=== PATIENT | female | born 1955 | race Caucasian/White ===

== ENCOUNTER → 2017-03-21 | Outpatient (CLI) | payer BC ==
[~2017-03-21] MED LIST: ANTRONEX PO; ASCO10003 PO; ASPI81TA28 PO; CALC100T3 PO; CHOL1TAB42 PO; GLUCTAB7 PO; MULTCAP33 PO
--- NOTE | 2017-03-21 16:39 | MAMMOGRAPHY REPORT ---
BILATERAL DIGITAL SCREENING MAMMOGRAM TOMOSYNTHESIS WITH CAD: 03/21/2017 CLINICAL HISTORY: Routine screening. Patient has no complaints. TECHNIQUE: Breast tomosynthesis in addition to standard 2D mammography was performed. Current study was also evaluated with a Computer Aided Detection (CAD) system. COMPARISON: Comparison is made to exams dated: 02/25/2016 mammogram, 02/19/2015 mammogram, 02/13/2014 ma mmogram, 01/17/2013 mammogram, 01/11/2012 mammogram, and 12/30/2010 mammogram - [facility] ter. BREAST COMPOSITION: There are scattered areas of fibroglandular density in both breasts. FINDINGS: There is a new oval circumscribed 2.1 cm mass within the right upper outer quadrant, which likely represents a cyst although additional imaging evaluation with ultrasound is recommended. A f ew other smaller similar appearing circumscribed masses are also seen within the right superior breas t at approximately 12:00, for which ultrasound is also recommended. There is a 9 mm asymmetry seen w ithin the left breast along the posterior nipple line on the cc view middle depth, without a clear co rrelate seen on the MLO view although this is possibly based inferiorly based on the tomosynthesis lo calizer prior. Recommend spot compression tomosynthesis views and possible breast ultrasound for fur ther evaluation. The remainder of both breasts are stable compared to prior exams, without suspicious masses, calcific ations, or areas of architectural distortion noted. IMPRESSION: ACR BI-RADS CATEGORY 0: INCOMPLETE EVALUATION: NEED ADDITIONAL IMAGING EVALUATION Right breast masses and left breast asymmetry, for which additional imaging evaluation is recommended . The patient will be called to schedule an appointment. Approximately 10% of breast cancers are not detected with mammography. A negative mammographic report should not delay biopsy if a clinically suggestive mass is present. Gloria Mayes M.D. /:03/21/2017 16:22:19 Inspector Packer: Mckayla BENITES(Edith)(Verito), [facility] letter sent: Addl Imaging 0 BI-RADS Code: ACR BI-RADS Category 0: Incomplete Evaluation: Need Additional Imaging Evaluation
== END | disposition home or self-care (01) ==
LOC: C.MAMM 10:47
PROVIDERS: ATTEND Family Medicine
DX: Z12.31 Encounter for screening mammogram for malignant neoplasm of breast (principal)

== ENCOUNTER → 2017-04-02 | Outpatient (CLI) | payer BC ==
--- NOTE | 2017-04-02 10:54 | DIAGNOSTIC IMAGING REPORT ---
PELVIS BILATERAL HIP 2 CLINICAL HISTORY: B/L HIP PAIN pain COMPARISON: None. 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 Good contact between prosthetic and underlying bone. Mild degenerative change left hip. No evidence for acute bony abnormality. There is no evidence for soft tissue swelling. IMPRESSION: 1. Total right hip prosthetic in good position. 2. Mild degenerative change left hip. 3. No acute process. Electronically signed by: Luther Degroot M.D. 04/02/2017 10:53 AM Dictated Date/Time: 04/02/2017 10:53 AM
== END | disposition home or self-care (01) ==
LOC: C.RDSM 13:44
PROVIDERS: ATTEND Physician Assistant
DX: R52 Pain, unspecified (principal)

== ENCOUNTER → 2017-04-02 | Outpatient (CLI) | payer BC ==
--- NOTE | 2017-04-02 16:00 | MAMMOGRAPHY REPORT ---
UNILATERAL LEFT DIGITAL DIAGNOSTIC MAMMOGRAM TOMOSYNTHESIS AND TARGETED BILATERAL ULTRASOUND: 04/02/20 17 CLINICAL HISTORY: 61-year-old woman called back from screening for right breast masses and left breas t asymmetry. TECHNIQUE: Spot compression left CC and MLO 2-D digital and tomosynthesis images were obtained. COMPARISON: Comparison is made to exams dated: 03/21/2017 mammogram, 02/25/2016 mammogram, 02/19/2015 m ammogram, 02/13/2014 mammogram, 01/17/2013 mammogram, and 01/11/2012 mammogram - [facility]. BREAST COMPOSITION: There are scattered areas of fibroglandular density in the left breast. FINDINGS: Spot compression views of the left breast were obtained. The spot compression left CC vie w demonstrates persistence of a 5.7 x 3.5 mm lobulated mass in the middle one third of the breast, al colette the posterior nipple line. This is thought to project inferiorly based on the spot compression M LO view no associated architectural distortion or microcalcification. Further evaluation with ultras ound was performed. Real-time high-resolution ultrasound was performed in the lateral right breast to assess for the 3 pa rtially circumscribed masses seen mammographically. In the 12:00 axis, 1 cm from the nipple, there a re 2 anechoic benign simple cysts. The larger is deeper measuring 8.2 x 5.6 mm, and the smaller is m ore superficial measuring 3.6 x 3.0 mm. Another mildly complicated cyst is seen in the 11:00 right b reast, 1 cm from the nipple, measuring 6.6 x 7.0 x 5.5 mm. A third a larger oval parallel anechoic c yst is identified in the 9:30 right breast, 1 cm from the nipple, measuring 19.2 x 7.7 x 18.9 mm. No suspicious solid mass is seen in the right breast. The cysts identified correlate with the mammogra phic masses and are benign. In the left 5:00 axis, 2 cm from the nipple, there is a dumbbell shaped circumscribed parallel hypoec hoic solid-appearing mass measuring 5.0 x 2.4 x 3.3 mm. This may possibly correlate with the mammogr aphic asymmetry. Given the solid nature it is indeterminate, warranting definitive characterization with tissue sampling. Other scattered cysts and duct ectasia are seen in the 5:00 left breast, 3 cm from the nipple, measuring 2.8 mm, and another cyst versus focal duct ectasia is seen in the 6:00 lef t breast, 1 cm from the nipple measuring 3.4 x 2.8 x 3.4 mm. Another probable cyst is seen in the 6: 00 periareolar left breast measuring 4.5 x 2.4 x 3.4 mm. IMPRESSION: ACR BI-RADS CATEGORY 4B: INTERMEDIATE SUSPICION FOR MALIGNANCY, TARGETED ULTRASOUND ACR BI-RADS CATEGORY 4B: INTERMEDIATE SUSPICION FOR MALIGNANCY 1. Ultrasound guided core biopsy is recommended for an indeterminate 5 mm solid mass in the 5:00 lef t breast. Correlation with posterior seizure mammograms are recommended to assess for mammographics onographic correlation and if this may possibly correlate with the mammographic asymmetry. Otherwise it may possibly correlate with one of the other cysts or focal duct ectasia seen on ultrasound. 2. The circumscribed masses in the right breast correlate with benign cysts on ultrasound. These fi ndings are compatible with benign fibrocystic changes and no further workup is needed. These results and recommendations were discussed with the patient at the time of the exam. She tenta tively scheduled the left breast biopsy prior to leaving our department. Approximately 10% of breast cancers are not detected with mammography. A negative mammographic report should not delay biopsy if a clinically suggestive mass is present. Iva Prieto M.D. ay/:04/02/2017 13:27:39 Associate Spa Director: Mimi Pereyra, [facility] letter sent: Abnormal 4/5 BI-RADS Code: ACR BI-RADS Category 4B: Intermediate Suspicion For Malignancy Ultrasound BI-RADS: ACR BI-RADS Category 4B: Intermediate Suspicion For Malignancy
== END | disposition home or self-care (01) ==
LOC: C.MAMM 09:31
PROVIDERS: ATTEND Family Medicine
DX: N63 Unspecified lump in breast (principal); N64.9 Disorder of breast, unspecified

== ENCOUNTER → 2017-04-11 | Outpatient (CLI) | payer BC ==
--- NOTE | 2017-04-11 14:34 | Discharge Instructions ---
Discharge Instructions Procedure Procedure Date: Apr 11, 2017. Reason for visit: Left Mass. Discharge Discharge Date: Apr 11, 2017. Discharge Diagnosis: post left 5:00 ultrasound guided core biopsy Instructions Activity Recommendations: Additional Limitations (see below) Return to School/Work: no limitations Recommended Home Diet: No Limitations Provider Instructions: ACTIVITY RECOMMENDATIONS: * No lifting, pushing, pulling or exercising the affected side for three days. RETURN TO SCHOOL/WORK: * You may return to work/school after the procedure, but do not perform any strenuous activities for 24 to 48 hours. MEDICATIONS: * Tylenol (two 325 mg) every four to six hours if needed for mild pain (if not allergic to Tylenol). DIET: * Resume previous diet. SPECIAL CARE INSTRUCTIONS: * Keep biopsy site dry for 24 hours. May shower after 24 hours, but do not soak (bathe) incision. * May remove Tegaderm (plastic patch) tomorrow AFTER showering. * Leave the steri-strips on for one week. Allow the steri-strips to fall off by themselves. If not off after one week, you may remove them. You may place a Bandaid crosswise over the strips, if desired. * Apply ice 10 minutes on and 10 minutes off as needed. * Wear a bra at bedtime to sleep more comfortably for 2-3 days. * Your referring physician should have the results after approximately 5 to 7 business days. * Call for unusual bleeding, fever, drainage, etc or if you have any questions call [phone] during normal business hours or after hours call Dr Prieto, . FOLLOW UP VISIT: Follow-up with Referring Physician as scheduled. Allergies Coded Allergies: Cat Dander (Verified Allergy, Intermediate, RHINITIS, 12/01/15) Dog Dander (Verified Allergy, Intermediate, RHINITIS, 12/01/15) POLLEN (Verified Allergy, Intermediate, SNEEZING, RHINITIS, 12/01/15) No Known Drug Allergy (Unverified Allergy, Unknown, NONE, 02/26/14) Red Pepper (Verified Adverse Reaction, Intermediate, HEadache, 12/01/15) Celestino Hanley Recommendations: Call your doctor if: * Temperature above 101 degrees * Pain not relieved by pain medicine ordered * There is increased drainage or redness from any incision * You have any unanswered questions or concerns. Your Doctors Instructions noted above were prepared by provider Iva Prieto. Patient Signature Section: Patient Instructions Signature Page Tania Ma Patient (or Guardian) Signature/Date: I have read and understand the instructions given to me by my caregivers. Caregiver/RN/Doctor Signature/Date: The above-named patient and/or guardian has received patient instructions on this date. + Original Patient Signature Page (only) stays with chart. Please make copy for patient.
--- NOTE | 2017-04-11 15:52 | MAMMOGRAPHY REPORT ---
THIS REPORT HAS BEEN AMENDED. ULTRASOUND GUIDED BIOPSY LEFT BREAST: 04/11/2017 CLINICAL HISTORY: Indeterminate 5 mm solid parallel circumscribed mass in the 5:00 left breast. Bebe ent presents for ultrasound-guided core needle biopsy. COMPARISON: Comparison is made to exams dated: 04/02/2017 ultrasound, 04/02/2017 mammogram, 03/21/2017 mammogram, 02/25/2016 mammogram, 02/19/2015 mammogram, and 02/13/2014 mammogram - [facility]. PATIENT CONSENT: The procedure, risks and benefits were discussed with the patient and informed writt en consent was obtained. Specific risks to this procedure include: bleeding, infection, puncture of a djacent structure, nontarget biopsy, sampling error, medication reaction, pain and metal allergy. PROCEDURE DESCRIPTION: A time out was performed and the left breast was agreed as the site of biopsy. The skin was prepped and draped in the usual sterile fashion. The solid parallel hypoechoic circumsc ribed mass in the 5:00 left breast was identified and chosen as the target for biopsy. Subcutaneous a nd intraparenchymal 1% buffered lidocaine without epinephrine was administered as local anesthesia. A skin incision was made. Through the incision, 3 samples were taken with a 14 gauge Achieve biopsy d evice. After the third biopsy sample of the mass was no longer visualized and there was a small amou nt of hematoma along the biopsy needle tract. Then a metallic marker was placed at the biopsy site. Hemostasis was achieved after manual compression. The patient tolerated the procedure well and there was no immediate complication. Postprocedure left CC and ML to the digital and tomosynthesis images were obtained. There is a new r ibbon-shaped metallic biopsy marker and no significant hematoma in the 5:00 left breast, at the site of the biopsied hypoechoic mass seen on ultrasound. The nodular asymmetry in the left breast, 5.2 cm distal to the nipple is less conspicuous when compared to the screening mammogram performed 03/21/20 17. However the biopsy marker clip is located 17 mm lateral to the asymmetry. Therefore pending zac ign pathology results, a short interval follow-up diagnostic left mammogram and repeat ultrasound is recommended to ensure stability in 6 months. IMPRESSION: ULTRASOUND GUIDED BIOPSY Status post ultrasound guided core biopsy of an indeterminate solid mass in the 5:00 left breast, wit h biopsy marker placed at the site. The biopsy marker clip is located 17 mm lateral to the asymmetry described from the 03/21/2017 screen ing mammogram; therefore this indeterminate solid mass seen on ultrasound does not correlate with the original mammographic asymmetry. Pending benign pathology results, a short interval follow-up diagn ostic left mammogram and repeat targeted ultrasound is recommended to ensure stability in 6 months. The patient will receive notification of the biopsy results from her referring physician. Iva Prieto M.D. ay/:04/11/2017 14:49:02 Coin Purse Framer: Maria G BENITES(Edith)(Verito), [facility] AMENDMENT: 04/17/2017 Iva Prieto M.D. In light of the pathology report, surgical consultation for possible surgical excision is recommended . Regardless of decision for surgical excision versus follow-up monitoring with imaging, the biopsy marker clip denoting the papilloma was lateral to the original asymmetry in question and therefore fo llow-up diagnostic left mammography including tomosynthesis images and possible repeat ultrasound is recommended in 6 months.
--- NOTE | 2017-04-11 15:52 | MAMMOGRAPHY REPORT ---
UNILATERAL LEFT DIGITAL DIAGNOSTIC MAMMOGRAM TOMOSYNTHESIS: 04/11/2017 CLINICAL HISTORY: Status post ultrasound-guided core biopsy of an indeterminate parallel hypoechoic s olid-appearing mass in the 5:00 left breast. Please refer to the report from left breast ultrasound guided core biopsy performed at the same time for full detail. IMPRESSION: POST PROCEDURE IMAGING FOR MARKER PLACEMENT Please refer to the report from left breast ultrasound guided core biopsy performed at the same time for full detail. Approximately 10% of breast cancers are not detected with mammography. A negative mammographic report should not delay biopsy if a clinically suggestive mass is present. Iva Prieto M.D. ay/:04/11/2017 14:35:58 Soda Column Operator: Maria G BENITES(Edith)(M), [facility] BI-RADS Code: Post Procedure Imaging For Marker Placement
== END | disposition home or self-care (01) ==
LOC: C.MAMM 13:32
PROVIDERS: ATTEND Family Medicine
DX: D24.2 Benign neoplasm of left breast (principal); N60.92 Unspecified benign mammary dysplasia of left breast

== ENCOUNTER → 2017-12-07 | Outpatient (CLI) | payer OTHER ==
--- NOTE | 2017-12-07 13:36 | MAMMOGRAPHY REPORT ---
UNILATERAL LEFT DIGITAL DIAGNOSTIC MAMMOGRAM TOMOSYNTHESIS WITH CAD AND TARGETED LEFT ULTRASOUND: 12/07 CLINICAL HISTORY: The patient is status post ultrasound guided biopsy of a left 5:00 breast mass April 2017 which yielded a papilloma. The patient underwent surgical excision in August at an outside [facility] which reportedly yielded benign pathology. The patient denies any lumps or other complain ts. TECHNIQUE: Breast tomosynthesis in addition to standard 2D mammography was performed. Current study was also evaluated with a Computer Aided Detection (CAD) system. Left CC and MLO 2-D and tomosynthes is images were obtained. COMPARISON: Comparison is made to exams dated: 04/11/2017 mammogram, 04/11/2017 ultrasound biopsy, 2016 ultrasound, 04/02/2017 mammogram, and 03/21/2017 mammogram - [facility]. BREAST COMPOSITION: There are scattered areas of fibroglandular density in the left breast. FINDINGS: There are new post surgical changes in the left breast at approximately 6:00 from recent ex cision of a left breast papilloma, including new density and architectural distortion at the surgical bed. A linear scar marker denotes a scar on the right anterior breast. There is a lobulated partia lly circumscribed and partially obscured 8 mm mass seen within the left 12:00 breast on the tomosynth esis images, for which ultrasound was performed. The remainder of the left breast is stable compared to prior exams, without suspicious masses, calcifications, or areas of architectural distortion note d. Targeted ultrasound was performed of the left 12:00 breast in the region of the mammographic mass. I n the left breast at 12:00, 2 cm from the nipple, there is a round circumscribed anechoic 4 x 4 mm ma ss, consistent with a benign simple cyst. Adjacent to this is an oval isoechoic circumscribed benign -appearing 4 x 5 x 3 mm mass. These 2 adjacent masses likely correspond with the mammographic mass; the isoechoic mass is probably benign and may represent a complicated cyst versus a benign solid mass . In the left breast at 1:00, 3 cm from the nipple, there is a partially anechoic and partially isoe choic mass which measures 4 x 3 x 5 mm, which is probably benign and likely represents fibrocystic ch anges. In the left 12:30 breast, 3 cm from the nipple, there is also an oval anechoic circumscribed 7 x 4 mm mass with a thin internal septation which is probably benign and likely represents a cyst. No suspicious masses were evident. IMPRESSION: ACR-BI-RADS CATEGORY 3: PROBABLY BENIGN, TARGETED ULTRASOUND ACR-BI-RADS CATEGORY 3: PRO BABLY BENIGN 1. New expected postsurgical changes from recent surgical excision of a papilloma in the left 5:00 b reast. 2. Multiple small anechoic and isoechoic masses seen within the left 12 to 1:00 breast on ultrasound , 2 of which are felt to correspond with a mammographic mass. The masses are probably benign and lik yoav represent fibrocystic changes. Recommend bilateral diagnostic tomosynthesis mammograms in 6 yong hs, to reevaluate the left breast masses and for routine mammography of the right breast. The patient has been verbally notified of the results. Approximately 10% of breast cancers are not detected with mammography. A negative mammographic report should not delay biopsy if a clinically suggestive mass is present. Gloria Mayes M.D. ah/:12/07/2017 12:06:17 Dye Range Operator: Shelley VELASQUEZ)(Verito), [facility] letter sent: Follow Up Recommended 3 BI-RADS Code: ACR-BI-RADS Category 3: Probably Benign Ultrasound BI-RADS: ACR-BI-RADS Category 3: Pr obably Benign
== END | disposition home or self-care (01) ==
LOC: C.MAMM 09:07
PROVIDERS: ATTEND Surgery
DX: N63.42 Unspecified lump in left breast, subareolar (principal); N63.21 Unspecified lump in the left breast, upper outer quadrant; Z98.890 Other specified postprocedural states

== ENCOUNTER 2021-03-08 10:38 | Inpatient (IN) ==
--- NOTE | 2021-03-08 11:38 | Emergency Department Note ---
Impression & Plan New onset atrial fibrillation, MVP (mitral valve prolapse), Acute hypotension, Weak ED Provider Note NAME: YASIR HAIR AGE: 65 SEX: F : 1955 ARRIVES VIA: Walk-I I just want a top n INFORMANT: Patient ED PROVIDER(S): Jacques Hdez DO CHIEF COMPLAINT: weakness HPI: Patient is a 65-year-old female who presents to the ER for weakness. The symptoms started around 04/13/2015. She notes that she had a shower and after that she feels weak and rundown. She can barely sit up that she just does not feel right. She denies any headache or change in vision. No chest pain or shortness of breath. No belly pain, nausea, vomiting, or diarrhea. She has never had this before. She denies taking any rate control medications. She denies any blood thinners. Does admit to a history of mitral valve prolapse. No other exacerbating or remitting factors. ROS: See above HPI for pertinent positives & negatives. A total of 10 systems reviewed and were otherwise negative. PAST MEDICAL HISTORY:See Below PAST SURGICAL HISTORY:See Below FAMILY HISTORY:See Below SOCIAL HISTORY:See Below HOME MEDICATIONS:See Below ALLERGIES:See Below VITALS:See Below PHYSICAL EXAMINATION: GENERAL: Sitting up in bed, alert, well appearing, well nourished, no distress, non-toxic EYE EXAM: normal conjunctiva. PERRL and EOM's grossly intact. OROPHARYNX: no exudate, no erythema, lips, buccal mucosa, and tongue normal and mucous membranes are moist NECK: supple, no nuchal rigidity, no adenopathy, non-tender LUNGS: Clear to auscultation. Normal chest wall mechanics HEART: Irregularly irregular, S1 normal and S2 normal ABDOMEN: abdomen soft, non-tender, normo-active bowel sounds, no masses, no rebound or guarding. BACK: Back is symmetrical on inspection and there is no deformity, no midline tenderness, no CVA tenderness. SKIN: no rashes and no bruising UPPER EXTREMITIES: upper extremities are grossly normal. LOWER EXTREMITIES: No pitting edema. NEURO EXAM: Normal sensorium, cranial nerves II-XII grossly intact, normal speech, no gross weakness of arms, no gross weakness of legs. MEDICAL DECISION MAKING: Patient is a 65-year-old female who presents ER for weakness and lightheadedness. IV was established blood was obtained. Labs show no significant leukocytosis or anemia. BMP with a slightly elevated chloride. LFTs bilirubin was negative. Troponin was negative. Covid was negative. EKG does show new onset A. fib. She was rate controlled. Chest x-ray was unremarkable. Question if this is the cause of her symptoms. She notes her baseline pressure is in the 90s. She is fluctuated from the 70s to 80s and 90s here. She is given a bolus of fluids. She remained rate controlled. Uncertain of when this truly occurred. Discussed with the hospitalist and patient was admitted for further work-up. Triage Nursing notes reviewed. Limited review of prior medical records performed Vital Signs: reviewed and remarkable for no significant abnormalities Differential diagnosis: Infection, dehydration, metabolic abnormality, hypo/hyperglycemia, electrolyte disturbance, anemia, hypoxia, cardiac sources, intracerebral event, toxicologic, neurologic, as well as other pathologies. ER treatment provided: See below Diagnostics interpreted by me: ECG: A. fib rate of 90 Left axis No PVCs QTC 442 Cardiac Monitoring: An order was placed for continuous cardiac monitoring. The monitor shows a rate of 98 with sinus rhythm. Laboratory studies: As stated above and show below. Imaging studies: Portable AP upright 1 view of the chest shows no focal infiltrate Consultation(s): Discussed with the hospitalist for further evaluation Procedures: none Critical Care: None Past Med/Surg History Medical History (Updated 03/08/21 @ 16:28 by Jacques Hdez DO) Aortic root enlargement Carpal tunnel syndrome DJD (degenerative joint disease) of hip (03/05/14) Endometriosis Insomnia MVP (mitral valve prolapse) Osteoporosis Paroxysmal SVT (supraventricular tachycardia) PAT (paroxysmal atrial tachycardia) Surgical History (Updated 03/08/21 @ 15:04 by Rachna Castillo PA-C) Hx of LASIK S/P bunionectomy S/P hip replacement Family History Other Atrial fibrillation Prostate cancer Social History Smoking Status: Never smoker Hx Alcohol Use: No Hx Substance Use: No Preferred Language: Iraqi Communication Ability: Effective Vocational Adviser Required: No Beliefs That Will Affect Care: None Current Living Situation: Spouse Other Information That Helps Us Care for You: No Feels Safe at Home: Yes Safety Concerns: Feels Safe At This Time Assistive Devices: Glasses Allergies Allergies Allergy/AdvReac Type Severity Reaction Status Date / Time cat dander Allergy Intermediate RHINITIS Verified 03/08/21 12:51 dog dander Allergy Intermediate RHINITIS Verified 03/08/21 12:51 pollen extracts Allergy Intermediate SNEEZING, Verified 03/08/21 12:51 RHINITIS No Known Drug Allergies Allergy Unknown NONE Unverified 03/08/21 12:51 Red Pepper AdvReac Intermediate HEadache Uncoded 03/08/21 12:51 Home Meds Home Medications Medication Instructions Recorded Confirmed alendronate 70 mg PO WK 03/08/21 03/08/21 calcium carbonate [Calcium 500] 500 mg PO BID 03/08/21 03/08/21 cholecalciferol (vitamin D3) 125 mcg PO DAILY 03/08/21 03/08/21 [Vitamin D3] fluticasone propionate [Flonase 2 spray INTRANASAL DAILY 03/08/21 03/08/21 Allergy Relief] glucos sul [id number] 1 cap PO DAILY 03/08/21 03/08/21 [Glucosamine Chondroitin] multivitamin 1 tab PO DAILY 03/08/21 03/08/21 trazodone 50 mg PO HS 03/08/21 03/08/21 Results & Data (ED) Vital Signs Vital Signs - 24 hr 03/08/21 10:49 03/08/21 11:26 03/08/21 12:16 Temperature 36.3 C L Temperature Source Temporal Artery Scan Pulse Rate - Lying 84 Pulse Rate - Sitting 101 H Pulse Rate - Standing 91 H Pulse Rate 96 H 89 Respiratory Rate 20 18 Blood Pressure - Lying 88/52 L Blood Pressure - Sitting 83/63 L Blood Pressure- Standing 96/51 L Blood Pressure 97/66 L 97/61 L Blood Pressure Mean 76 73 Pulse Oximetry 100 100 Oxygen Delivery Method Room Air Sepsis Recent Fever Within 48 Hours No Sepsis New/Unexplained Change in Mental Status N/A Sepsis Action Taken by Nursing No Action Required 03/08/21 12:30 03/08/21 13:00 03/08/21 13:30 Temperature Temperature Source Pulse Rate - Lying Pulse Rate - Sitting Pulse Rate - Standing Pulse Rate 76 79 85 Respiratory Rate 13 16 19 Blood Pressure - Lying Blood Pressure - Sitting Blood Pressure- Standing Blood Pressure 90/63 L 84/62 L 98/64 L Blood Pressure Mean 72 69 75 Pulse Oximetry 100 98 97 Oxygen Delivery Method Sepsis Recent Fever Within 48 Hours Sepsis New/Unexplained Change in Mental Status Sepsis Action Taken by Nursing Laboratory Data Result diagrams: 03/08/21 11:14 03/08/21 11:14 Lab Results 03/08/21 03/08/21 03/08/21 Range/Units 11:14 11:14 11:14 WBC 5.39 (4.8-10.8) K/uL RBC 4.11 L (4.2-5.4) M/uL Hgb 12.6 (12.0-16.0) g/dL Hct 37.0 (37-47) % MCV 90.0 (80-100) fL MCH 30.7 (25-34) pg MCHC 34.1 (32-36) g/dL RDW Std Deviation 42.9 (36.4-46.3) fL RDW Coeff of Anuja 13.0 (11.5-14.5) % Plt Count 163 (130-400) K/uL MPV 9.5 (7.4-10.4) fL Immature Gran % (Auto) 0.0 % Neut % (Auto) 58.4 % Lymph % (Auto) 33.4 % [place] % (Auto) 7.4 % Eos % (Auto) 0.6 % Baso % (Auto) 0.2 % Neut # (Auto) 3.15 (1.4-6.5) K/uL Lymph # (Auto) 1.80 (1.2-3.4) K/uL [place] # (Auto) 0.40 (0.11-0.59) K/uL Eos # (Auto) 0.03 (0-0.5) K/uL Baso # (Auto) 0.01 (0-0.2) K/uL Immature Gran # (Auto) 0.00 (0.00-0.02) K/uL Sodium 141 (136-145) mmol/L Potassium 3.7 (3.5-5.1) mmol/L Chloride 109 H (98-107) mmol/L Carbon Dioxide 26 (21-32) mmol/L Anion Gap 6.0 (3-11) BUN 14 (7-18) mg/dl Creatinine 0.61 (0.6-1.2) mg/dl Est Cr Clr Drug Dosing 94.2 ml/min Est GFR ( Amer) 111.8 ml/min Est GFR (Non-Af Amer) 96.5 ml/min BUN/Creatinine Ratio 22.7 H (10-20) Glucose 84 (70-99) mg/dl Calcium 9.1 (8.5-10.1) mg/dl Total Bilirubin 0.3 (0.2-1) mg/dl AST 12 L (15-37) U/L ALT 19 (12-78) U/L Alkaline Phosphatase 34 L (45-117) U/L Troponin I < 0.015 (0-0.045) ng/ml Total Protein 6.4 (6.4-8.2) gm/dl Albumin 3.6 (3.4-5.0) gm/dl Globulin 2.8 (2.5-4.0) gm/dl Albumin/Globulin Ratio 1.3 (0.9-2) COVID-19 Eval Order SARS-CoV-2 (PCR) (Negative) 03/08/21 03/08/21 Range/Units 12:10 12:10 WBC (4.8-10.8) K/uL RBC (4.2-5.4) M/uL Hgb (12.0-16.0) g/dL Hct (37-47) % MCV (80-100) fL MCH (25-34) pg MCHC (32-36) g/dL RDW Std Deviation (36.4-46.3) fL RDW Coeff of Anuja (11.5-14.5) % Plt Count (130-400) K/uL MPV (7.4-10.4) fL Immature Gran % (Auto) % Neut % (Auto) % Lymph % (Auto) % [place] % (Auto) % Eos % (Auto) % Baso % (Auto) % Neut # (Auto) (1.4-6.5) K/uL Lymph # (Auto) (1.2-3.4) K/uL [place] # (Auto) (0.11-0.59) K/uL Eos # (Auto) (0-0.5) K/uL Baso # (Auto) (0-0.2) K/uL Immature Gran # (Auto) (0.00-0.02) K/uL Sodium (136-145) mmol/L Potassium (3.5-5.1) mmol/L Chloride (98-107) mmol/L Carbon Dioxide (21-32) mmol/L Anion Gap (3-11) BUN (7-18) mg/dl Creatinine (0.6-1.2) mg/dl Est Cr Clr Drug Dosing ml/min Est GFR ( Amer) ml/min Est GFR (Non-Af Amer) ml/min BUN/Creatinine Ratio (10-20) Glucose (70-99) mg/dl Calcium (8.5-10.1) mg/dl Total Bilirubin (0.2-1) mg/dl AST (15-37) U/L ALT (12-78) U/L Alkaline Phosphatase (45-117) U/L Troponin I (0-0.045) ng/ml Total Protein (6.4-8.2) gm/dl Albumin (3.4-5.0) gm/dl Globulin (2.5-4.0) gm/dl Albumin/Globulin Ratio (0.9-2) COVID-19 Eval Order Covid19 at [facility] SARS-CoV-2 (PCR) NEGATIVE (Negative) Administered Medications Discontinued Medications Sodium Chloride (Nss 1000ml) 500 mls @ 999 mls/hr IV .Q31M ONE Stop: 03/08/21 12:09 Last Infusion: 03/08/21 13:10 Dose: 0 mls/hr Documented by: [id number] Admin: 03/08/21 12:17 Dose: 999 mls/hr Documented by: [id number] Sodium Chloride (Nss 1000ml) 500 mls @ 999 mls/hr IV .Q31M ONE Stop: 03/08/21 14:16 Last Infusion: 03/08/21 14:38 Dose: 0 mls/hr Documented by: [id number] Admin: 03/08/21 14:05 Dose: 999 mls/hr Documented by: [id number] Imaging Data Radiologist's Impression: Chest X-Ray 03/08/21 11:39 XR chest 1V portable CLINICAL HISTORY: weak COMPARISON STUDY: 12/01/2015 FINDINGS: The cardiac and mediastinal contours are normal. There is no evidence of focal pulmonary consolidation. There is no evidence of failure. No pleural effusions are visualized.[ IMPRESSION: No active disease in the chest. ACT 112: Negative or not required by law. Electronically signed by: Kenny Delacruz M.D. 03/08/2021 12:07 PM Discharge Plan Visit Data Chief Complaint: Hypotension Stated Complaint: VERY LOW BLOOD PRESSUE ED Provider: Jacques Hdez Discharge Problem: New onset atrial fibrillation, MVP (mitral valve prolapse), Acute hypotension, Weak Patient Disposition: Admitted As Inpatient Discharge Instructions Interventions: ED Discharge Assessment Last Done: 03/08/21 14:27
[2021-03-08] MEDS ORDERED: SODIUM CHLORIDE 0.9% 1000ML 500 ML IV ONE ×2 (11:39→13:46)
[2021-03-08 11:42] LABS: Basophils # (auto) 0.01 K/uL (0-0.2); Basophils % (auto) 0.2 %; Eosinophils # (auto) 0.03 K/uL (0-0.5); Eosinophils % (auto) 0.6 %; Hemoglobin 12.6 g/dL (12.0-16.0); Lymphocytes % (auto) 33.4 %; Mean Corpuscular Hemoglobin 30.7 pg (25-34); Mean Corpuscular Hgb Conc 34.1 g/dL (32-36); Mean Platelet Volume 9.5 fL (7.4-10.4); Monocytes % (auto) 7.4 %; Neutrophils # (auto) 3.15 K/uL (1.4-6.5); Neutrophils % (auto) 58.4 %; Platelet Count 163 K/uL (130-400); RDW Standard Deviation 42.9 fL (36.4-46.3); Red Blood Count 4.11 M/uL (4.2-5.4); White Blood Count 5.39 K/uL (4.8-10.8)
[2021-03-08 12:01] LABS: Albumin Level 3.6 gm/dl (3.4-5.0); BUN Creatinine Ratio 22.7 (10-20); Calcium 9.1 mg/dl (8.5-10.1); Creatinine Clr Calc Pharmacy 94.2 ml/min; Est GFR (African American) 111.8 ml/min; Est GFR (Non-African American) 96.5 ml/min; Potassium 3.7 mmol/L (3.5-5.1)
[2021-03-08 12:04] LABS: Albumin Globulin Ratio 1.3 (0.9-2); Bilirubin,Total 0.3 mg/dl (0.2-1); Globulin 2.8 gm/dl (2.5-4.0); Total Protein 6.4 gm/dl (6.4-8.2)
--- NOTE | 2021-03-08 12:09 | XRay Report ---
XR chest 1V portable CLINICAL HISTORY: weak COMPARISON STUDY: 12/01/2015 FINDINGS: The cardiac and mediastinal contours are normal. There is no evidence of focal pulmonary co nsolidation. There is no evidence of failure. No pleural effusions are visualized.[ IMPRESSION: No active disease in the chest. ACT 112: Negative or not required by law. Electronically signed by: Kenny Delacruz M.D. 03/08/2021 12:07 PM
--- NOTE | 2021-03-08 12:50 | Electrocardiogram Report ---
Test Reason : Blood Pressure : / mmHG Vent. Rate : 068 BPM Atrial Rate : 326 BPM P-R Int : 000 ms QRS Dur : 088 ms QT Int : 362 ms P-R-T Axes : 000 -53 029 degrees QTc Int : 384 ms Atrial fibrillation Left anterior fascicular block Abnormal ECG When compared with ECG of 01-DEC-2015 09:40, Atrial fibrillation has replaced Sinus rhythm Confirmed by Tom Carbajal ([id number]) on 03/08/2021 12:49:17 PM Referred By: REFERRED SELF Confirmed By:Tom Carbajal
--- NOTE | 2021-03-08 13:51 | History & Physical Report ---
Date of Service March 08, 2021 Assessment & Plan (1) New onset atrial fibrillation: This is a 65yo F with a PMH of chronic hypotension, paroxysmal supraventricular tachycardia (likely paroxysmal atrial tachycardia), mitral valve prolapse, second degree Mobitz type 1, LAFB, osteoporosis, insomnia and other medical problems listed below who presents with lightheadedness and low blood pressure since last evening and was found to have new onset atrial fibrillation. Lightheadedness, fatigue, shoulder heaviness earlier today that has since resolved in setting of A fib, hypotension EKG with rate controlled A fib @ 68 bpm H/o paroxysmal SVT/PAT in the past but no documented A Fib Antronex supplement possibly a contributor ? Started on standard dose IV heparin [id number] Score of 1 Recent TTE from 11/04/2020 with preserved EF of 57%, grade 1 diastolic dysfunction, mild mitral valve prolapse, mild TR, mild enlargement of a sending aorta 4 cm CXR with no active disease in the chest Monitor on telemetry, trend troponin Remains rate controlled at 71 bpm without medication Routine cardiology consult (2) Chronic hypotension: BP initially 72/49 at home, improved to 100/73 after 1 L NSS Baseline BP high 90s/60 Encouraged liberal salt intake, ordered Trever hose Possibility of adding low-dose Florinef mentioned by Dr. Robledo in the past (3) Aortic root enlargement: Mild enlargement of a sending aorta 4 cm per TTE from Oct 2020 (4) Insomnia: Continue Trazodone DVT Ppx: IV heparin Code status: FULL PCP: Nirav Dispo: Admitted to PCU. Plan to return home once medically stable. Patient seen in collaboration with Dr. Blank. Please see addendum. History of Present Illness Chief Complaint: dizziness, fatigue Primary Care Provider: Dianna Gastelum MD This is a 65yo F with a PMH of chronic hypotension, paroxysmal supraventricular tachycardia (likely paroxysmal atrial tachycardia), mitral valve prolapse, second degree Mobitz type 1, LAFB, osteoporosis, insomnia and other medical problems listed below who presents with lightheadedness and low blood pressure since last evening. Started to feel lightheaded last evening with positional change but was able to sleep without issue. Today, felt very rundown almost too weak to sit up. Endorses a weighted feeling of shoulders but denies chest pain. Denies diaphoresis, shortness of breath, nausea or vomiting. Was able to lie down at home and put feet up with resolution of discomfort in shoulders. Took blood pressure at home around this time, which was 72/49. Has chronic hypotension with baseline BP high 90s/60s. Follows with Dr. Robledo of cardiology group for paroxysmal SVT/PAT as well as hypotension and he has rec ommended liberal salt intake and compression stockings in the past with potential addition of low-dose Florinef in the future. Has been compliant with liberal sodium but has not worn compression stockings over the past few months. TTE from 11/04/2020 with preserved EF of 57%, grade 1 diastolic dysfunction, mild mitral valve prolapse, mild TR, mild enlargement of a sending aorta 4 cm. Recent medication changes include increasing trazodone from 25 to 50 mg at bedtime. Has also been taking a supplement called Antronex for allergy symptoms for past 2 weeks. Currently feeling well at rest. Denies any visual changes, lightheadedness, near-syncope, chest pain, SOB, nausea, vomiting, abdominal pain, dysuria, diarrhea or constipation. Allergies Allergy/AdvReac Type Severity Reaction Status Date / Time cat dander Allergy Intermediate RHINITIS Verified 03/08/21 12:51 dog dander Allergy Intermediate RHINITIS Verified 03/08/21 12:51 pollen extracts Allergy Intermediate SNEEZING, Verified 03/08/21 12:51 RHINITIS No Known Drug Allergies Allergy Unknown NONE Unverified 03/08/21 12:51 Red Pepper AdvReac Intermediate HEadache Uncoded 03/08/21 12:51 Home Medications Medication Instructions Recorded Confirmed Type alendronate 70 mg PO WK 03/08/21 03/08/21 History calcium carbonate [Calcium 500] 500 mg PO BID 03/08/21 03/08/21 History cholecalciferol (vitamin D3) 125 mcg PO DAILY 03/08/21 03/08/21 History [Vitamin D3] fluticasone propionate [Flonase 2 spray INTRANASAL DAILY 03/08/21 03/08/21 History Allergy Relief] glucos sul [id number]-Mn 1 cap PO DAILY 03/08/21 03/08/21 History [Glucosamine Chondroitin] multivitamin 1 tab PO DAILY 03/08/21 03/08/21 History trazodone 50 mg PO HS 03/08/21 03/08/21 History Past Med/Surg History Medical History Aortic root enlargement Carpal tunnel syndrome DJD (degenerative joint disease) of hip (03/05/14) Endometriosis Insomnia MVP (mitral valve prolapse) Osteoporosis Paroxysmal SVT (supraventricular tachycardia) PAT (paroxysmal atrial tachycardia) Surgical History Hx of LASIK S/P bunionectomy S/P hip replacement Family History Other Atrial fibrillation Prostate cancer Social History Smoking Status: Never smoker Hx Alcohol Use: No Hx Substance Use: No Preferred Language: Omani Communication Ability: Effective Warehouse Technician Required: No Beliefs That Will Affect Care: None Current Living Situation: Spouse Other Information That Helps Us Care for You: No Feels Safe at Home: Yes Safety Concerns: Feels Safe At This Time Assistive Devices: Glasses Review of Systems Review of Systems: At least ten systems reviewed and negative except as noted in the HPI. Physical Exam Physical Exam: General Appearance: WD/WN, vitals as above, NAD, sitting up in bed, pleasant, conversing easily Head: normocephalic, atraumatic Eyes: normal inspection, PERRL, conjunctivae normal, anicteric sclerae ENT: external ear and nose normal, oropharynx normal Neck: normal visual inspection, trachea midline, no thyromegaly Respiratory: normal respiratory effort, lungs clear to auscultation, no wheeze, rales, rhonchi. No accessory muscle use Cardiovascular: irregular rate & rhythm, no murmur appreciated, normal peripheral pulses, no BLE edema. Vessels: no JVD Chest: normal inspection of chest Abdomen/GI: normal bowel sounds, soft, nontender, no hepatosplenomegaly Extremities/Musculoskeletal: no cyanosis or clubbing, extremities motor strength 5/5 Neurologic: PERRL, EOMI, accommodation nl, no face palsy, no dysarthria, CN's II-XI intact bilaterally and moves all extremities Psychiatric: A+Ox3, euthymic affect Skin: no rashes, normal color, warm/dry Results & Data Results & Data ([facility]) Vital Signs (Past 12 Hours) Vital Signs Temp Pulse Resp BP Pulse Ox 03/08/21 13:00 79 16 84/62 L 98 03/08/21 12:30 76 13 90/63 L 100 03/08/21 12:16 89 18 97/61 L 100 03/08/21 10:49 36.3 C L 96 H 20 97/66 L 100 Laboratory Results Short CBC 03/08/21 Range/Units 11:14 WBC 5.39 (4.8-10.8) K/uL Hgb 12.6 (12.0-16.0) g/dL Hct 37.0 (37-47) % Plt Count 163 (130-400) K/uL BMP 03/08/21 11:14 Sodium 141 Potassium 3.7 Chloride 109 H Carbon Dioxide 26 BUN 14 Creatinine 0.61 Glucose 84 Calcium 9.1 Cardiac Enzymes 03/08/21 Range/Units 11:14 Troponin I < 0.015 (0-0.045) ng/ml Liver Function 03/08/21 Range/Units 11:14 Total Bilirubin 0.3 (0.2-1) mg/dl AST 12 L (15-37) U/L ALT 19 (12-78) U/L Alkaline Phosphatase 34 L (45-117) U/L Albumin 3.6 (3.4-5.0) gm/dl Diagnostic Findings CXR: IMPRESSION: No active disease in the chest. ECG Rhythm: atrial fibrillation Findings: + LAFB Code Status & VTE Plan VTE Prophylaxis Plan VTE Prophylaxis will be ordered: Yes Supervising Physician Co-Signing Physician Notes Attending addendum: The patient was seen and examined in telemetry unit in presence of the She has a long history of hypotension and very sensitive to medications She was admitted with symptomatic hypotension noted to have a fever with variable block Denies any symptoms during examination On examination Lying in bed comfortably but very anxious Hemodynamically stable with blood pressure on the lower side at 103/71 and heart rate 108 Chest-clear to auscultate bilaterally Heart-S1-S2, regular. No murmur Abdomen-benign Extremities-negative for any edema Her admission labs, EKG and imaging studies reviewed Has atrial fibrillation with variable block Long history of hypotension Sensitivity to aspirin and other medications Cardiology consulted Agree with assessment and plan as outlined above by ЕКАТЕРИНА Godfrey Dr
[2021-03-08] MEDS ORDERED: ONDANSETRON INJ 2 MG/ML 2 ML VIAL IV PRN (15:09)
[2021-03-08] MEDS ORDERED: ACETAMINOPHEN 325 MG TAB PO PRN (15:09)
[2021-03-08] MEDS ORDERED: POLYETHYLENE (MIRALAX) 17 GM PACK PO PRN (15:09)
[2021-03-08] MEDS ORDERED: HEPARIN SODIUM/DEXTROSE 25,000 UNITS/500 ML BAG IV SCH (16:26)
[2021-03-08] MEDS: Heparin IV Adult Wt-Based Standard *NO* Bolus Protocol IV SCH (16:36)
--- NOTE | 2021-03-08 16:36 | Electrocardiogram Report ---
Test Reason : Blood Pressure : / mmHG Vent. Rate : 090 BPM Atrial Rate : 100 BPM P-R Int : 000 ms QRS Dur : 092 ms QT Int : 362 ms P-R-T Axes : 000 -52 062 degrees QTc Int : 442 ms Atrial fibrillation Left anterior fascicular block Abnormal ECG When compared with ECG of 08-MAR-2021 11:21, No significant change Confirmed by Tom Carbajal ([id number]) on 03/08/2021 4:36:18 PM Referred By: REFERRED SELF Confirmed By:Tom Carbajal
--- NOTE | 2021-03-08 17:05 | Cardiology Consultation ---
Date of Consultation March 08, 2021 Assessment & Plan (1) New onset atrial fibrillation: (2) PAT (paroxysmal atrial tachycardia): (3) Paroxysmal SVT (supraventricular tachycardia): (4) MVP (mitral valve prolapse): (5) Chronic hypotension: (6) Weak: It was my pleasure to see the patient in consultation today. The pathophysiology and treatment options for atrial fibrillation were discussed with the patient and her at the bedside. At this point they would prefer to pursue a rhythm control strategy and I believe this is acceptable. Since we have no way of telling how long she was in A. fib she will require a transesophageal echocardiogram to be performed to rule out left atrial appendage thrombus prior to undergoing cardioversion. Both procedures will be scheduled for the a.m. N.p.o. after midnight. Continue heparin drip but will transition to Eliquis as per her preference prior to discharge. Given her ongoing hypotension, I am hesitant to start any AV damon blocking agents. Consideration could be given in the future to addition of Florinef and beta- adelaide but we will defer that at this time. History of Present Illness Reason for Consultation: New onset atrial fibrillation Requesting Physician: Dr. Blank Attending Physician: Marvel Blank MD History of Present Illness The patient is a very pleasant 65-year-old woman who routinely follows with Dr. Arango of our cardiology practice for her history of hypotension and SVT. She presented to [facility] emergency department today at the advice of cardiac nursing with complaints of chest heaviness and extreme fatigue. She states that she woke up this morning her normal state of health but then when she was taking a shower she developed severe heaviness across her chest and bilateral shoulders. This was associated with some shortness of breath and lightheadedness. She states that this is similar to episodes of hypotension that she has had in the past and ate breakfast and drank liquids in order to resolve her symptoms. She then called the nursing hotline and was recommend she go to the emergency department but at that point she states that she was feeling 80% better and her chest heaviness had resolved. Upon arrival emergency department she was found to be in atrial fibrillation with slow ventricular response but again with her baseline hypotension. She was started on a heparin drip and admitted to telemetry. Currently she states that she feels well at rest. Past medical history as per most recent outpatient cardiology visit: 1. Chronic hypotension with recent episode of acute symptomatic orthostatic hypotension October 15, 2019. Blood pressure improved today with hydration, bilateral compression stockings, and sodium intake. 2. Paroxysmal supraventricular tachycardia likely paroxysmal atrial tachycardia 3. Mitral valve prolapse with mild mitral regurgitation 4. Second-degree AV block Mobitz type 1 during presumed hours of sleep 5. Left anterior fascicular block Allergies Allergy/AdvReac Type Severity Reaction Status Date / Time cat dander Allergy Intermediate RHINITIS Verified 03/08/21 12:51 dog dander Allergy Intermediate RHINITIS Verified 03/08/21 12:51 pollen extracts Allergy Intermediate SNEEZING, Verified 03/08/21 12:51 RHINITIS No Known Drug Allergies Allergy Unknown NONE Unverified 03/08/21 12:51 Red Pepper AdvReac Intermediate HEadache Uncoded 03/08/21 12:51 Home Medications Medication Instructions Recorded Confirmed Type alendronate 70 mg PO WK 03/08/21 03/08/21 History calcium carbonate [Calcium 500] 500 mg PO BID 03/08/21 03/08/21 History cholecalciferol (vitamin D3) 125 mcg PO DAILY 03/08/21 03/08/21 History [Vitamin D3] fluticasone propionate [Flonase 2 spray INTRANASAL DAILY 03/08/21 03/08/21 History Allergy Relief] glucos sul [id number] 1 cap PO DAILY 03/08/21 03/08/21 History [Glucosamine Chondroitin] multivitamin 1 tab PO DAILY 03/08/21 03/08/21 History trazodone 50 mg PO HS 03/08/21 03/08/21 History Patient History Medical History Aortic root enlargement Carpal tunnel syndrome DJD (degenerative joint disease) of hip (03/05/14) Endometriosis Insomnia MVP (mitral valve prolapse) Osteoporosis Paroxysmal SVT (supraventricular tachycardia) PAT (paroxysmal atrial tachycardia) Surgical History Hx of LASIK S/P bunionectomy S/P hip replacement Family History Other Atrial fibrillation Prostate cancer Social History Smoking Status: Never smoker Hx Alcohol Use: No Hx Substance Use: No Preferred Language: Latvian Communication Ability: Effective Boat Cleaner Required: No Beliefs That Will Affect Care: None Current Living Situation: Spouse Other Information That Helps Us Care for You: No Feels Safe at Home: Yes Safety Concerns: Feels Safe At This Time Assistive Devices: Glasses Review of Systems Review of Systems: All systems reviewed & are unremarkable except as noted in HPI & below Physical Exam Physical Exam: General: Awake, alert and oriented x 3. No acute distress. HEENT: Normocephalic, atraumatic. Pupils equal, round and reactive to light and accommodation. Extraocular muscles are intact. Anicteric sclera. Moist mucous membranes. Neck: No JVD. No bruit. Cardiovascular: irregularly irregular, unable to appreciate murmur, rub or gallop. Pulmonary: Clear to auscultation bilaterally. No rales, rhonchi, or wheezing. Abdomen: Bowel sounds x 4, soft. No rebound, guarding or tenderness. No organomegaly. Extremities: No clubbing, cyanosis or edema. +2 pedal pulses bilaterally. Skin: Warm and dry. Results & Data ([facility]) Vital Signs (Past 12 Hours) Vital Signs Temp Pulse Pulse Resp BP BP Pulse Ox 03/08/21 15:40 108 H 03/08/21 15:10 36.8 C 83 18 103/71 94 03/08/21 14:00 71 21 100/73 100 03/08/21 13:53 88 20 115/52 L 100 03/08/21 13:30 85 19 98/64 L 97 03/08/21 13:00 79 16 84/62 L 98 03/08/21 12:30 76 13 90/63 L 100 03/08/21 12:16 89 18 97/61 L 100 03/08/21 10:49 36.3 C L 96 H 20 97/66 L 100 Diagnostic Findings Echocardiogram performed 11/04/2020: Compared to last available study, there has been no interval change. Normal LV chamber size and wall thickness. Normal LV systolic function without regional wall motion abnormality. Calculated LV ejection Fraction = 57% (bi-plane method of discs). Grade 1 diastolic dysfunction. Mild prolapse of the posterior mitral valve leaflet. Mild mitral regurgitation. Mild tricuspid regurgitation. Mild enlargement of the aortic root and ascending aorta both measuring 4 cm.
[2021-03-08] MEDS ORDERED: POTASSIUM CHLORIDE CRTAB 20 MEQ TABCR PO STA (17:31)
[2021-03-08 17:42] LABS: Partial Thromboplastin Time 25.6 Seconds (21.0-31.0); Prothrombin Time 10.6 Seconds (9.0-12.0)
[2021-03-08] MEDS: NSS + 20MEQ KCL 20 MEQ/1,000 ML BAG IV SCH (20:23)
[2021-03-08] MEDS: CALCIUM CARBONATE 1250MG TAB PO SCH (20:24)
[2021-03-08] MEDS ORDERED: traZODone HCL 50 MG TAB PO SCH (21:00)
[2021-03-08] MEDS ORDERED: METOPROLOL TARTRATE 25 MG TAB PO SCH (21:00)
[2021-03-08 23:48] LABS: Partial Thromboplastin Ratio 2.5; Partial Thromboplastin Time 66.9 Seconds (21.0-31.0)
[2021-03-09] MEDS: NSS + 20MEQ KCL 20 MEQ/1,000 ML BAG IV SCH (05:57)
[2021-03-09 06:44] LABS: Hemoglobin 11.9 g/dL (12.0-16.0); Mean Corpuscular Hemoglobin 30.1 pg (25-34); Mean Corpuscular Volume 88.6 fL (80-100); Mean Platelet Volume 9.1 fL (7.4-10.4); Platelet Count 122 K/uL (130-400); RDW Coefficient of Variation 12.9 % (11.5-14.5); RDW Standard Deviation 42.5 fL (36.4-46.3); Red Blood Count 3.95 M/uL (4.2-5.4)
[2021-03-09 07:04] LABS: Partial Thromboplastin Ratio 3.3
[2021-03-09 07:35] LABS: BUN Creatinine Ratio 16.7 (10-20); Est GFR (African American) 118.6 ml/min; Est GFR (Non-African American) 102.3 ml/min; Magnesium 2.3 mg/dl (1.8-2.4); Potassium 4.1 mmol/L (3.5-5.1)
[2021-03-09 08:08] LABS: Partial Thromboplastin Time 87.5 Seconds (21.0-31.0)
--- NOTE | 2021-03-09 08:43 | Electrocardiogram Report ---
Test Reason : Blood Pressure : / mmHG Vent. Rate : 065 BPM Atrial Rate : 065 BPM P-R Int : 202 ms QRS Dur : 092 ms QT Int : 384 ms P-R-T Axes : 032 -40 039 degrees QTc Int : 399 ms Normal sinus rhythm Left axis deviation Low voltage QRS Abnormal ECG When compared with ECG of 08-MAR-2021 13:50, Sinus rhythm has replaced Atrial fibrillation HR has decreased by 25 bpm Confirmed by Tom Carbajal ([id number]) on 03/09/2021 8:43:28 AM Referred By: REFERRED SELF Confirmed By:Tom Carbajal
--- NOTE | 2021-03-09 08:54 | Electrocardiogram Report ---
Test Reason : Blood Pressure : / mmHG Vent. Rate : 070 BPM Atrial Rate : 070 BPM P-R Int : 198 ms QRS Dur : 094 ms QT Int : 396 ms P-R-T Axes : 063 -46 050 degrees QTc Int : 427 ms Normal sinus rhythm Low voltage QRS Left anterior fascicular block Abnormal ECG When compared with ECG of 08-MAR-2021 18:38, No significant change was found Confirmed by Tom Carbajal ([id number]) on 03/09/2021 8:54:38 AM Referred By: REFERRED SELF Confirmed By:Tom Carbajal
[2021-03-09] MEDS ORDERED: MULTIVITAMIN TAB PO SCH (09:00)
[2021-03-09] MEDS ORDERED: CHOLECALCIFEROL 1,000 UNITS 25 MCG TAB PO SCH (09:00)
[2021-03-09] MEDS ORDERED: NON-FORMULARY MEDICATION (Glucos Sul 2kcl-Msm-Chond-C-Mn [Glucosamine Chondroitin] 550-30- PO SCH (09:00)
[2021-03-09] MEDS ORDERED: FLUTICASONE PROPIONATE NA SPR 16 GM BTL NAE SCH (09:00)
[2021-03-09] MEDS: CALCIUM CARBONATE 1250MG TAB PO SCH (10:26)
--- NOTE | 2021-03-09 10:56 | Cardiology Progress Note ---
Date of Service March 09, 2021 Assessment & Plan (1) New onset atrial fibrillation: (2) PAT (paroxysmal atrial tachycardia): (3) Paroxysmal SVT (supraventricular tachycardia): (4) MVP (mitral valve prolapse): (5) Chronic hypotension: (6) Weak: Spontaneously converted to normal sinus rhythm yesterday and feeling well now. We will discontinue heparin and start Eliquis 5 mg p.o. twice daily which the patient will be discharged home on for at least a 30-day course. My office will arrange follow-up with her primary child care assistant in the next 2 to 4 weeks to discuss long-term plan. Okay to DC to home from a cardiac standpoint. Patient counseled to return to emergency department with recurrent symptoms. Consideration could be given in the future to addition of Florinef and beta- adelaide but we will defer that at this time. Admission and Anticipated Discharge Date Admission Date: March 08, 2021 Subjective Patient seen and examined, chart reviewed. Spontaneously converted to normal sinus rhythm last p.m. States that she is feeling well. She states that she feels back to her normal state and is anxious for discharge. Denies any chest pain, shortness of breath, palpitations, lightheadedness, dizziness or syncope. Telemetry reviewed: Normal sinus rhythm without arrhythmia. Review of Systems Review of Systems: All systems reviewed & are unremarkable except as noted in HPI & below Physical Exam Physical Exam: General: Awake, alert and oriented x 3. No acute distress. HEENT: Normocephalic, atraumatic. Pupils equal, round and reactive to light and accommodation. Extraocular muscles are intact. Anicteric sclera. Moist mucous membranes. Neck: No JVD. No bruit. Cardiovascular: Regular. Positive S-4. Normal S-1 and S-2. No S-3. No murmurs or rubs. Pulmonary: Clear to auscultation B/L. No rales, rhonchi or wheezing Abdomen: Bowel sounds x 4, soft. No rebound, guarding or tenderness. No organomegaly. Extremities: No clubbing, cyanosis or edema. +2 pedal pulses bilaterally. Skin: Warm and dry. Results & Data ([facility]) Vital Signs (Past 12 Hours) Vital Signs Temp Pulse Pulse Resp BP Pulse Ox 03/09/21 08:42 73 03/09/21 07:46 37.0 C 63 16 148/60 H 95 03/09/21 03:24 36.6 C 65 18 105/70 96 03/08/21 23:59 36.5 C 66 18 102/68 96
[2021-03-09] MEDS ORDERED: APIXABAN 5 MG TABLET PO SCH (11:00)
--- NOTE | 2021-03-09 12:06 | Hospitalist Progress Note ---
Date of Service March 09, 2021 Assessment & Plan (1) New onset atrial fibrillation: Patient is a 65 yr with H/O chronic hypotension, paroxysmal supraventricular tachycardia (likely paroxysmal atrial tachycardia), mitral valve prolapse, second degree Mobitz type 1, LAFB, osteoporosis, insomnia and other medical problems listed below who presents with lightheadedness and low blood pressure since last evening and was found to have new onset atrial fibrillation. New onset atrial fibrillation H/O MVP TTE from 11/04/2020 with preserved EF of 57%, grade 1 diastolic dysfunction, mild mitral valve prolapse, mild TR, mild enlargement of a sending aorta 4 cm CXR with no active disease in the chest Spontaneously converted to sinus rhythm Given chronic hypotension, no rate control medications started IV heparin transition to [facility] Appreciate cardiology help Needs follow-up with cardiology upon discharge (2) Chronic hypotension: BP initially 72/49 at home BP improved with IV fluids No plan to start on Florinef currently--May need it eventually if persistent hypotension (3) Aortic root enlargement: Mild enlargement of a sending aorta 4 cm per TTE from Oct 2020 (4) Insomnia: Continue Trazodone DVT Px: IV heparin Code status: FULL CODE PCP: [facility] Admission and Anticipated Discharge Date Admission Date: March 08, 2021 Subjective Patient is seen and examined at bedside Spontaneously converted to sinus rhythm Denies chest pain, shortness of breath, dizziness, nausea, abdominal pain Eager to get discharged Discussed with cardiology today Review of Systems Review of Systems: All systems reviewed & are unremarkable except as noted in HPI & below Physical Exam Physical Exam: Physical Exam: Vitals signs as noted above General Appearance:Moderately built and nourished, no apparent distress Head: normocephalic, Atraumatic Eyes: normal inspection, EOMI Neck: supple, Trachea midline Respiratory/Chest: Normal breath sounds, CTA, No accessory muscle use Cardiovascular: S1, S2, No murmur Abdomen/GI:Soft, Non tender, Bowel sounds present Extremities/Musculoskeletal:normal inspection, no edema Neurologic/Psych:AAOX3, grossly no focal neurological deficits Skin: normal color, warm Results & Data Results & Data ([facility]) Vital Signs (Past 12 Hours) Vital Signs Temp Pulse Pulse Resp BP Pulse Ox 03/09/21 08:42 73 03/09/21 07:46 37.0 C 63 16 148/60 H 95 03/09/21 03:24 36.6 C 65 18 105/70 96 Laboratory Results Short CBC 03/09/21 Range/Units 06:27 WBC 4.60 L (4.8-10.8) K/uL Hgb 11.9 L (12.0-16.0) g/dL Hct 35.0 L (37-47) % Plt Count 122 L (130-400) K/uL BMP 03/09/21 06:27 Sodium 144 Potassium 4.1 Chloride 116 H Carbon Dioxide 24 BUN 8 D Creatinine 0.51 L Glucose 91 Calcium 8.0 L Cardiac Enzymes 03/08/21 03/08/21 Range/Units 17:09 23:13 Troponin I < 0.015 < 0.015 (0-0.045) ng/ml
--- NOTE | 2021-03-09 14:40 | Discharge Summary ---
Date of Service March 09, 2021 Admission HPI Per Admitting Provider This is a 65yo F with a PMH of chronic hypotension, paroxysmal supraventricular tachycardia (likely paroxysmal atrial tachycardia), mitral valve prolapse, second degree Mobitz type 1, LAFB, osteoporosis, insomnia and other medical problems listed below who presents with lightheadedness and low blood pressure since last evening. Started to feel lightheaded last evening with positional change but was able to sleep without issue. Today, felt very rundown almost too weak to sit up. Endorses a weighted feeling of shoulders but denies chest pain. Denies diaphoresis, shortness of breath, nausea or vomiting. Was able to lie down at home and put feet up with resolution of discomfort in shoulders. Took blood pressure at home around this time, which was 72/49. Has chronic hypotension with baseline BP high 90s/60s. Follows with Dr. Robledo of cardiology group for paroxysmal SVT/PAT as well as hypotension and he has recommended liberal salt intake and compression stockings in the past with potential addition of low-dose Florinef in the future. Has been compliant with liberal sodium but has not worn compression stockings over the past few months. TTE from 11/04/2020 with preserved EF of 57%, grade 1 diastolic dysfunction, mild mitral valve prolapse, mild TR, mild enlargement of a sending aorta 4 cm. Recent medication changes include increasing trazodone from 25 to 50 mg at bedtime. Has also been taking a supplement called Antronex for allergy symptoms for past 2 weeks. Currently feeling well at rest. Denies any visual changes, lightheadedness, near-syncope, chest pain, SOB, nausea, vomiting, abdominal pain, dysuria, diarrhea or constipation. Admission Exam Per Admitting Provider Physical Exam Physical Exam: General Appearance: WD/WN, vitals as above, NAD, sitting up in bed, pleasant, conversing easily Head: normocephalic, atraumatic Eyes: normal inspection, PERRL, conjunctivae normal, anicteric sclerae ENT: external ear and nose normal, oropharynx normal Neck: normal visual inspection, trachea midline, no thyromegaly Respiratory: normal respiratory effort, lungs clear to auscultation, no wheeze, rales, rhonchi. No accessory muscle use Cardiovascular: irregular rate & rhythm, no murmur appreciated, normal peripheral pulses, no BLE edema. Vessels: no JVD Chest: normal inspection of chest Abdomen/GI: normal bowel sounds, soft, nontender, no hepatosplenomegaly Extremities/Musculoskeletal: no cyanosis or clubbing, extremities motor strength 5/5 Neurologic: PERRL, EOMI, accommodation nl, no face palsy, no dysarthria, CN's II-XI intact bilaterally and moves all extremities Psychiatric: A+Ox3, euthymic affect Skin: no rashes, normal color, warm/dry Principal Diagnosis New onset atrial fibrillation Hypotension Discharge Data Allergies Allergy/AdvReac Type Severity Reaction Status Date / Time cat dander Allergy Intermediate RHINITIS Verified 03/08/21 12:51 dog dander Allergy Intermediate RHINITIS Verified 03/08/21 12:51 pollen extracts Allergy Intermediate SNEEZING, Verified 03/08/21 12:51 RHINITIS No Known Drug Allergies Allergy Unknown NONE Unverified 03/08/21 12:51 Red Pepper AdvReac Intermediate HEadache Uncoded 03/08/21 12:51 Consultations 03/08/21 13:27 ED Decision to Admit Stat 03/08/21 15:09 Consult Cardiology Routine Procedures Performed Operation Date: 03/09/21 08:00 <No data on this case meets the specified criteria> CXR with no active disease in the chest Hospital Course (1) New onset atrial fibrillation: Patient is a 65 yr with H/O chronic hypotension, paroxysmal supraventricular tachycardia (likely paroxysmal atrial tachycardia), mitral valve prolapse, second degree Mobitz type 1, LAFB, osteoporosis, insomnia and other medical problems listed below who presents with lightheadedness and low blood pressure since last evening and was found to have new onset atrial fibrillation. New onset atrial fibrillation H/O MVP TTE from 11/04/2020 with preserved EF of 57%, grade 1 diastolic dysfunction, mild mitral valve prolapse, mild TR, mild enlargement of a sending aorta 4 cm CXR with no active disease in the chest Spontaneously converted to sinus rhythm Given chronic hypotension, no rate control medications started IV heparin transition to Eliquis Appreciate cardiology help Needs follow-up with cardiology upon discharge (2) Chronic hypotension: BP initially 72/49 at home BP improved with IV fluids No plan to start on Florinef currently--May need it eventually if persistent hypotension (3) Aortic root enlargement: Mild enlargement of a sending aorta 4 cm per TTE from Oct 2020 (4) Insomnia: Continue Trazodone DVT Px: IV heparin Code status: FULL CODE PCP: Nirav Total Time Total Time Spent Total Time Spent (In Minutes): 38 minutes Total Time Includes: Examination of the Patient, Discharge Planning, Medication Reconciliation, Communication With Other Providers and Other Discharge Plan Discharge Items Patient Disposition: Home - Self-Care Reason For Visit: NEAR SYNCOPE, HYPOTENSION Discharge Diagnosis: New onset atrial fibrillation Hypotension Activity: Per Instructions section Exercise/Sports: Gradually increase as tolerated Non-emergency contact: Primary Care Provider and Curer [employer] Drum Call non-emergency contact if: you have any medication questions, your symptoms worsen, your pain is concerning for you and you have a fever Follow-up/Referrals: Dianna Gastelum MD [Primary Care Provider] - (Date & Time 03/15/2021 11:00 AM Provider Dianna Gastelum MD Department General Internal Medicine [facility] ) Diet: Heart Healthy Addtl Attending Provider Instructions: Follow-up with your primary care physician on 03/15/2021 11:00 AM as scheduled Follow-up with your supervisor riveting Dr. Velez in 2 to 4 weeks as advised Seek immediate medical attention if your symptoms reoccur or worsen Please take all medications as instructed on discharge list below. Please call if you have any questions or problems. You can reach a [facility] hospitalist on duty at [facility] 24 hours a day by calling [phone] Pending Studies at Discharge: No Stand-Alone Forms: My [facility] Health, Smoking Cessation Medications and DC Order Prescriptions: New Eliquis 5 mg tablet 5 mg PO BID Qty: 60 RF: 0 Continued multivitamin Tablet 1 tab PO DAILY RF: 0 trazodone 50 mg tablet 50 mg PO HS RF: 0 alendronate 70 mg tablet 70 mg PO WK RF: 0 calcium carbonate [Calcium 500] 500 mg calcium (1,250 mg) Tablet 500 mg PO BID RF: 0 fluticasone propionate [Flonase Allergy Relief] 50 mcg/actuation Sp ray,Suspension 2 spray INTRANASAL DAILY RF: 0 cholecalciferol (vitamin D3) [Vitamin D3] 125 mcg (5,000 unit) Tablet 125 mcg PO DAILY RF: 0 Glucosamine Chondroitin 550-30-1 mg Capsule 1 cap PO DAILY RF: 0 Discharge Orders: Discharge Order (Routine); Ordered 06/02/21 Ordered By: Quinn De Dios Admission Data Admit Date/Time: 03/08/21 13:48 Attending Provider: Quinn De Dios Admit Provider: Marvel Blank Primary Care Provider: Dianna Gastelum Other Providers: Marvel Blank ; Spencer Velez Other Interventions: Discharge Summary Assessment (RN) Last Done: 03/09/21 12:19
[2021-03-11] MEDS ORDERED: ALENDRONATE SODIUM 70 MG TAB PO SCH (06:00)
== END 2021-03-09 13:22 | disposition home or self-care (01) | DRG 310 ==
LOC: ED 10:38 → 2S 13:48 → SUATTDRO 13:48 → 2S 14:27

== ENCOUNTER 2021-07-21 15:13 | Observation (INO) ==
[2021-07-21] MEDS ORDERED: ASPIRIN CHEW 324 MG PO STA (15:52)
[2021-07-21] MEDS ORDERED: SODIUM CHLORIDE 0.9% 500 ML IV ONE (16:35)
[2021-07-21] MEDS ORDERED: ACETAMINOPHEN 1,000 MG/100 ML VIAL IV STA (16:35)
--- NOTE | 2021-07-21 16:38 | Emergency Department Note ---
Impression & Plan Chest pain, exertional, Palpitations, Shortness of breath on exertion ED Provider Note NAME: YASIR HAIR AGE: 65 SEX: F ARRIVES VIA: Walk-In INFORMANT: Patient, ED PROVIDER(S): Figueroa Vaz MD CHIEF COMPLAINT: Exertional CP. PLAN: Disposition: Admit MEDICAL DECISION MAKING: The patient is a pleasant 65 y/o woman with a PMH of chronic hypotension, paroxysmal supraventricular tachycardia (likely paroxysmal atrial tachycardia), mitral valve prolapse, second degree Mobitz type 1, LAFB, osteoporosis, insomnia presents with chest pressure after having Covid-19 booster. Occurs in the setting of chronic, recurring chest pressure, palpitations, and sob diagnosed with afib. The patient further clarifies that since her diagnosis with atrial fibrillation's past summer she feels as though she has frequent chest pressure with exertion. In particular she reports that this is become more pronounced and consistent over the past week. Today she reported the pain being most severe and contacted her cardiology office and was referred to the emergency department. Patient reports she even had sensation of pressure walking from her car to the ED waiting room. Otherwise she denies any fevers, chills, cough, congestion, nausea, vomiting, diarrhea. Of note, the patient did have a nuclear stress test in April that was negative. She was recently started on metoprolol for symptoms of palpitations. On arrival the patient is relatively well-appearing in no acute distress, afebrile stable vital signs. She appears clinically dry. Exam is otherwise unremarkable. Given the patient's report of exertional chest pressure she was given aspirin on arrival. EKG without overt acute ischemia. Chest x-ray negative for acute card iopulmonary process. WBC, hemoglobin and platelets within normal limits. Chemistry without metabolic acidosis. Electrolytes LFTs unremarkable. Troponin negative/undetectable in the setting of > 6 hours of constant though waxing and waning symptoms. TSH within normal limits. COVID-19 PCR was negative. Given the patient reports a increasing pattern of exertional chest pressure reasonable to meet the patient for further evaluation. The patient and her at the bedside were in agreement this plan. She did report residual chest pressure rating it a 1/10. Nitroglycerin administered to see if this additionally would help her symptoms. Case was discussed with Dr. Meyer, [facility] hospitalist, who will evaluate the patient for admission. Triage Nursing notes reviewed and agree them. Prior medical records reviewed Vital Signs: reviewed and remarkable for no significant abnormalities Differential diagnosis: Cardiac ischemia, aortic dissection, pulmonary embolism, pneumothorax, pneumonia, pericarditis, myocarditis, esophageal rupture, GERD, cholecystitis, pancreatitis, musculoskeletal, as well as other pathologies. ER treatment provided: See below. Diagnostics interpreted by me: ECG: NSR, 63 bpm, no ectopy, LAFB, no overt ST elevation or depression. Cardiac Monitoring: An order for continuous cardiac monitoring was placed and demonstrated NSR, 63 bpm, no ectopy. Laboratory studies: See below Imaging studies: See below Consultation(s): Case was discussed with Dr. Meyer, [facility] hospitalist, who will evaluate the patient for admission. HPI: The patient is a pleasant 65 y/o woman with a PMH of chronic hypotension, paroxysmal supraventricular tachycardia (likely paroxysmal atrial tachycardia), mitral valve prolapse, second degree Mobitz type 1, LAFB, osteoporosis, insomnia presents with chest pressure after having Covid-19 booster. Occurs in the setting of chronic, recurring chest pressure, palpitations, and sob diagnosed with afib. The patient further clarifies that since her diagnosis with atrial fibrillation's past summer she feels as though she has frequent chest pressure w ith exertion. In particular she reports that this is become more pronounced and consistent over the past week. Today she reported the pain being most severe and contacted her cardiology office and was referred to the emergency department. Patient reports she even had sensation of pressure walking from her car to the ED waiting room. Otherwise she denies any fevers, chills, cough, congestion, nausea, vomiting, diarrhea. Of note, the patient did have a nuclear stress test in April that was negative. She was recently started on metoprolol for symptoms of palpitations. ROS: See above HPI for pertinent positives & negatives. A total of 10 systems reviewed and were otherwise negative. PAST MEDICAL HISTORY:See Below PAST SURGICAL HISTORY:See Below FAMILY HISTORY:See Below SOCIAL HISTORY:See Below HOME MEDICATIONS:See Below ALLERGIES:See Below VITALS:See Below PHYSICAL EXAMINATION: GENERAL: Awake, alert, well-appearing, in no distress HENT: Normocephalic, atraumatic. Oropharynx with dry mucous membranes and otherwise unremarkable. EYES: Normal conjunctiva. Sclera non-icteric. NECK: Supple. No nuchal rigidity. FROM. No JVD. RESPIRATORY: Clear to auscultation. CARDIAC: Regular rate, normal rhythm. Extremities warm and well perfused. Pulses equal. ABDOMEN: Soft, non-distended. No tenderness to palpation. No rebound or guarding. No masses. RECTAL: Deferred. MUSCULOSKELETAL: Chest examination reveals no tenderness. The back is symmetrical on inspection without obvious abnormality. There is no CVA tenderness to palpation. No joint edema. LOWER EXTREMITIES: Calves are equal size bilaterally and non-tender. No edema. No discoloration. NEURO: Normal sensorium. No sensory or motor deficits noted. SKIN: No rash or jaundice noted. Figueroa Vaz MD Past Med/Surg History Medical History Aortic root enlargement Carpal tunnel syndrome DJD (degenerative joint disease) of hip (03/05/14) Endometriosis Insomnia MVP (mitral valve prolapse) Osteoporosis Paroxysmal SVT (supraventricular tachycardia) PAT (paroxysmal atrial tachycardia) Surgical History Hx of LASIK S/P bunionectomy S/P hip replacement Family History Other Atrial fibrillation Prostate cancer Social History Smoking Status: Never smoker Second Hand Exposure: No; Do You Dip or Chew Tobacco: No; Hx Alcohol Use: No Hx Substance Use: No Preferred Language: Filipino Communication Ability: Effective Administrative Assistant Front Desk Required: No Beliefs That Will Affect Care: None Current Living Situation: Spouse Feels Safe at Home: Yes Safety Concerns: Feels Safe At This Time Assistive Devices: Glasses Allergies Allergies Allergy/AdvReac Type Severity Reaction Status Date / Time cat dander Allergy Intermediate RHINITIS Verified 07/21/21 19:02 dog dander Allergy Intermediate RHINITIS Verified 07/21/21 19:02 pollen extracts Allergy Intermediate SNEEZING, Verified 07/21/21 19:02 RHINITIS No Known Drug Allergies Allergy Unknown NONE Unverified 07/21/21 19:02 Red Pepper AdvReac Intermediate HEadache Uncoded 07/21/21 19:02 Home Meds Home Medications Medication Instructions Recorded Confirmed alendronate 70 mg tablet 70 mg PO WK 03/08/21 07/21/21 calcium carbonate 500 mg calcium 500 mg PO BID 03/08/21 07/21/21 (1,250 mg) tablet (Calcium 500) cholecalciferol (vitamin D3) 125 125 mcg PO DAILY 03/08/21 07/21/21 mcg (5,000 unit) tablet (Vitamin D3) fluticasone propionate 50 2 spray INTRANASAL DAILY 03/08/21 07/21/21 mcg/actuation nasal spray,suspension (Flonase Allergy Relief) glucosamine sulf dipot 1 cap PO DAILY 03/08/21 07/21/21 chlr,msm,chond 550 mg-C 30 mg-isauro 1 mg capsule (Glucosamine Chondroitin) multivitamin 1 tab PO DAILY 03/08/21 07/21/21 trazodone 50 mg tablet 25 mg PO HS 03/08/21 07/21/21 metoprolol succinate 25 mg See Rx Instructions .ROUTE .COMPLEX 07/21/21 07/21/21 tablet,extended release 24 hr Previous Rx's Medication Instructions Recorded apixaban 5 mg tablet (Eliquis) 5 mg PO BID #60 tab 03/09/21 Results & Data (ED) Vital Signs Vital Signs - 24 hr 07/21/21 15:14 07/21/21 16:42 07/21/21 16:50 Temperature 37 C Temperature Source Temporal Artery Scan Pulse Rate 71 71 64 Pulse Rate [Apical] Pulse Rate from SpO2 Sensor 70 65 Pulse Rhythm [Apical] Pulse Strength [Apical] Respiratory Rate 18 17 18 Respiratory Effort / Characteristics Non-Labored Respiratory Depth Normal Blood Pressure 102/67 Blood Pressure [Right Arm] Blood Pressure Mean 78 Blood Pressure Mean [Right Arm] Blood Pressure Position [Right Arm] Pulse Oximetry 95 98 100 Oxygen Delivery Method Room Air Sepsis Recent Fever Within 48 Hours No Sepsis New/Unexplained Change in Mental Status No Sepsis Action Taken by Nursing No Action Required 07/21/21 17:00 07/21/21 17:10 07/21/21 17:30 Temperature Temperature Source Pulse Rate 63 57 L 56 L Pulse Rate [Apical] Pulse Rate from SpO2 Sensor 63 58 L 57 L Pulse Rhythm [Apical] Pulse Strength [Apical] Respiratory Rate 21 22 17 Respiratory Effort / Characteristics Respiratory Depth Blood Pressure Blood Pressure [Right Arm] Blood Pressure Mean Blood Pressure Mean [Right Arm] Blood Pressure Position [Right Arm] Pulse Oximetry 97 99 100 Oxygen Delivery Method Sepsis Recent Fever Within 48 Hours Sepsis New/Unexplained Change in Mental Status Sepsis Action Taken by Nursing 07/21/21 17:40 07/21/21 18:19 07/21/21 18:20 Temperature Temperature Source Pulse Rate 62 70 59 L Pulse Rate [Apical] Pulse Rate from SpO2 Sensor 63 69 59 L Pulse Rhythm [Apical] Pulse Strength [Apical] Respiratory Rate 19 19 16 Respiratory Effort / Characteristics Respiratory Depth Blood Pressure 113/70 Blood Pressure [Right Arm] Blood Pressure Mean 84 Blood Pressure Mean [Right Arm] Blood Pressure Position [Right Arm] Pulse Oximetry 99 100 100 Oxygen Delivery Method Sepsis Recent Fever Within 48 Hours Sepsis New/Unexplained Change in Mental Status Sepsis Action Taken by Nursing 07/21/21 18:30 07/21/21 18:40 07/21/21 18:50 Temperature Temperature Source Pulse Rate 61 69 70 Pulse Rate [Apical] Pulse Rate from SpO2 Sensor 68 68 Pulse Rhythm [Apical] Pulse Strength [Apical] Respiratory Rate 21 18 23 Respiratory Effort / Characteristics Respiratory Depth Blood Pressure Blood Pressure [Right Arm] Blood Pressure Mean Blood Pressure Mean [Right Arm] Blood Pressure Position [Right Arm] Pulse Oximetry 100 97 Oxygen Delivery Method Sepsis Recent Fever Within 48 Hours Sepsis New/Unexplained Change in Mental Status Sepsis Action Taken by Nursing 07/21/21 19:00 07/21/21 19:10 07/21/21 19:20 Temperature Temperature Source Pulse Rate 67 65 62 Pulse Rate [Apical] Pulse Rate from SpO2 Sensor 67 65 62 Pulse Rhythm [Apical] Pulse Strength [Apical] Respiratory Rate 13 20 15 Respiratory Effort / Characteristics Respiratory Depth Blood Pressure 111/68 Blood Pressure [Right Arm] Blood Pressure Mean 82 Blood Pressure Mean [Right Arm] Blood Pressure Position [Right Arm] Pulse Oximetry 99 97 98 Oxygen Delivery Method Sepsis Recent Fever Within 48 Hours Sepsis New/Unexplained Change in Mental Status Sepsis Action Taken by Nursing 07/21/21 19:22 07/21/21 19:55 Temperature Temperature Source Pulse Rate Pulse Rate [Apical] 70 Pulse Rate from SpO2 Sensor Pulse Rhythm [Apical] Regular Pulse Strength [Apical] Normal Respiratory Rate 17 Respiratory Effort / Characteristics Non-Labored Respiratory Depth Normal Blood Pressure Blood Pressure [Right Arm] 123/75 Blood Pressure Mean Blood Pressure Mean [Right Arm] 91 Blood Pressure Position [Right Arm] Lying Pulse Oximetry 98 94 Oxygen Delivery Method Room Air Room Air Sepsis Recent Fever Within 48 Hours Sepsis New/Unexplained Change in Mental Status Sepsis Action Taken by Nursing Laboratory Data Attestation: I reviewed the patient's lab results. Result diagrams: 07/21/21 17:03 07/21/21 17:03 Lab Results 07/21/21 07/21/21 07/21/21 Range/Units 17:03 17:03 17:03 WBC 6.80 (4.8-10.8) K/uL RBC 4.12 L (4.2-5.4) M/uL Hgb 12.5 (12.0-16.0) g/dL Hct 36.7 L (37-47) % MCV 89.1 (80-100) fL MCH 30.3 (25-34) pg MCHC 34.1 (32-36) g/dL RDW Std Deviation 42.8 (36.4-46.3) fL RDW Coeff of Anuja 13.1 (11.5-14.5) % Plt Count 166 (130-400) K/uL MPV 9.8 (7.4-10.4) fL Immature Gran % (Auto) 0.1 % Neut % (Auto) 62.7 % Lymph % (Auto) 31.5 % Laurens % (Auto) 4.7 % Eos % (Auto) 0.9 % Baso % (Auto) 0.1 % Neut # (Auto) 4.26 (1.4-6.5) K/uL Lymph # (Auto) 2.14 (1.2-3.4) K/uL Laurens # (Auto) 0.32 (0.11-0.59) K/uL Eos # (Auto) 0.06 (0-0.5) K/uL Baso # (Auto) 0.01 (0-0.2) K/uL Immature Gran # (Auto) 0.01 (0.00-0.02) K/uL PT 9.9 (9.0-12.0) Seconds INR 1.0 (0.9-1.1) APTT 25.6 (21.0-31.0) Seconds PTT Ratio 1.0 Sodium 141 (136-145) mmol/L Potassium 4.1 (3.5-5.1) mmol/L Chloride 109 H (98-107) mmol/L Carbon Dioxide 29 (21-32) mmol/L Anion Gap 3.0 (3-11) BUN 15 (7-18) mg/dl Creatinine 0.61 (0.6-1.2) mg/dl Est Cr Clr Drug Dosing 104.3 ml/min Est GFR ( Amer) 111.8 ml/min Est GFR (Non-Af Amer) 96.5 ml/min BUN/Creatinine Ratio 24.5 H (10-20) Glucose 91 (70-99) mg/dl Calcium 8.9 (8.5-10.1) mg/dl Phosphorus 3.5 (2.5-4.9) mg/dl Magnesium 2.6 H (1.8-2.4) mg/dl Total Bilirubin 0.4 (0.2-1) mg/dl Direct Bilirubin 0.1 (0-0.2) mg/dl AST 19 (15-37) U/L ALT 22 (12-78) U/L Alkaline Phosphatase 45 (45-117) U/L Total Creatine Kinase 92 (26-192) U/L Troponin I < 0.015 (0-0.045) ng/ml Total Protein 6.6 (6.4-8.2) gm/dl Albumin 3.8 (3.4-5.0) gm/dl Globulin 2.8 (2.5-4.0) gm/dl Albumin/Globulin Ratio 1.4 (0.9-2) TSH 0.919 (0.300-4.500) uIu/ml COVID-19 Eval Order SARS-CoV-2 (PCR) (Negative) 07/21/21 07/21/21 Range/Units 18:18 18:18 WBC (4.8-10.8) K/uL RBC (4.2-5.4) M/uL Hgb (12.0-16.0) g/dL Hct (37-47) % MCV (80-100) fL MCH (25-34) pg MCHC (32-36) g/dL RDW Std Deviation (36.4-46.3) fL RDW Coeff of Anuja (11.5-14.5) % Plt Count (130-400) K/uL MPV (7.4-10.4) fL Immature Gran % (Auto) % Neut % (Auto) % Lymph % (Auto) % Laurens % (Auto) % Eos % (Auto) % Baso % (Auto) % Neut # (Auto) (1.4-6.5) K/uL Lymph # (Auto) (1.2-3.4) K/uL Laurens # (Auto) (0.11-0.59) K/uL Eos # (Auto) (0-0.5) K/uL Baso # (Auto) (0-0.2) K/uL Immature Gran # (Auto) (0.00-0.02) K/uL PT (9.0-12.0) Seconds INR (0.9-1.1) APTT (21.0-31.0) Seconds PTT Ratio Sodium (136-145) mmol/L Potassium (3.5-5.1) mmol/L Chloride (98-107) mmol/L Carbon Dioxide (21-32) mmol/L Anion Gap (3-11) BUN (7-18) mg/dl Creatinine (0.6-1.2) mg/dl Est Cr Clr Drug Dosing ml/min Est GFR ( Amer) ml/min Est GFR (Non-Af Amer) ml/min BUN/Creatinine Ratio (10-20) Glucose (70-99) mg/dl Calcium (8.5-10.1) mg/dl Phosphorus (2.5-4.9) mg/dl Magnesium (1.8-2.4) mg/dl Total Bilirubin (0.2-1) mg/dl Direct Bilirubin (0-0.2) mg/dl AST (15-37) U/L ALT (12-78) U/L Alkaline Phosphatase (45-117) U/L Total Creatine Kinase (26-192) U/L Troponin I (0-0.045) ng/ml Total Protein (6.4-8.2) gm/dl Albumin (3.4-5.0) gm/dl Globulin (2.5-4.0) gm/dl Albumin/Globulin Ratio (0.9-2) TSH (0.300-4.500) uIu/ml COVID-19 Eval Order Covid19 at [facility] SARS-CoV-2 (PCR) NEGATIVE (Negative) Administered Medications Discontinued Medications Aspirin (Aspirin Chew 324 Mg) 324 mg PO ONE STA Stop: 07/21/21 15:53 Last Admin: 07/21/21 16:40 Dose: 324 mg Documented by: [id number] Sodium Chloride (Nss) 500 mls @ 999 mls/hr IV .Q31M ONE Stop: 07/21/21 17:05 Last Infusion: 07/21/21 19:21 Dose: 0 mls/hr Documented by: [id number] Admin: 07/21/21 17:01 Dose: 999 mls/hr Documented by: [id number] Acetaminophen (Ofirmev) 1,000 mg in 100 mls @ 400 mls/hr IV NOW STA Stop: 07/21/21 16:49 Last Infusion: 07/21/21 19:21 Dose: 0 mls/hr Documented by: [id number] Admin: 07/21/21 16:57 Dose: 400 mls/hr Documented by: [id number] Nitroglycerin (Nitroglycerin Sl 0.4 Mg/Tab Tab) 0.4 mg SL NOW STA Stop: 07/21/21 19:47 Last Admin: 07/21/21 19:55 Dose: 0.4 mg Documented by: [id number] Imaging Data Radiologist's Impression: Chest X-Ray 07/21/21 15:52 XR chest 1V portable HISTORY: Atypical Chest Pain COMPARISON: Chest 03/08/2021. FINDINGS: The lungs are clear. Cardiac silhouette is normal in size. No pleural effusions. No pneumothorax. IMPRESSION: No acute process. ACT 112: Negative or not required by law. Electronically signed by: Abdi Buck M.D. 07/21/2021 6:04 PM Discharge Plan Visit Data Chief Complaint: Cardiac Assessment Stated Complaint: CHEST PRESSURE,SOB ED Provider: Figueroa Vaz Discharge Problem: Chest pain, exertional, Palpitations, Shortness of breath on exertion Patient Disposition: Admitted As Inpatient Discharge Instructions Interventions: ED Discharge Assessment Last Done: 07/21/21 23:20
[2021-07-21 17:23] LABS: Basophils # (auto) 0.01 K/uL (0-0.2); Basophils % (auto) 0.1 %; Eosinophils # (auto) 0.06 K/uL (0-0.5); Eosinophils % (auto) 0.9 %; Hematocrit (blood only) 36.7 % (37-47); Hemoglobin 12.5 g/dL (12.0-16.0); Immature Granulocytes # (auto) 0.01 K/uL (0.00-0.02); Immature Granulocytes % (auto) 0.1 %; Lymphocytes # (auto) 2.14 K/uL (1.2-3.4); Lymphocytes % (auto) 31.5 %; Mean Corpuscular Hemoglobin 30.3 pg (25-34); Mean Corpuscular Hgb Conc 34.1 g/dL (32-36); Mean Corpuscular Volume 89.1 fL (80-100); Mean Platelet Volume 9.8 fL (7.4-10.4); Monocytes # (auto) 0.32 K/uL (0.11-0.59); Monocytes % (auto) 4.7 %; Neutrophils # (auto) 4.26 K/uL (1.4-6.5); Neutrophils % (auto) 62.7 %; Platelet Count 166 K/uL (130-400); RDW Coefficient of Variation 13.1 % (11.5-14.5); RDW Standard Deviation 42.8 fL (36.4-46.3); Red Blood Count 4.12 M/uL (4.2-5.4)
[2021-07-21 17:34] LABS: Partial Thromboplastin Time 25.6 Seconds (21.0-31.0); Prothrombin Time 9.9 Seconds (9.0-12.0)
[2021-07-21 17:46] LABS: Alanine Aminotransferase 22 U/L (12-78); Albumin Level 3.8 gm/dl (3.4-5.0); Aspartate Aminotransferase 19 U/L (15-37); BUN Creatinine Ratio 24.5 (10-20); Bilirubin Direct 0.1 mg/dl (0-0.2); Blood Urea Nitrogen 15 mg/dl (7-18); Calcium 8.9 mg/dl (8.5-10.1); Carbon Dioxide 29 mmol/L (21-32); Chloride 109 mmol/L (98-107); Creatinine Clr Calc Pharmacy 104.3 ml/min; Est GFR (African American) 111.8 ml/min; Est GFR (Non-African American) 96.5 ml/min; Glucose 91 mg/dl (70-99); Magnesium 2.6 mg/dl (1.8-2.4); Potassium 4.1 mmol/L (3.5-5.1); Sodium 141 mmol/L (136-145)
[2021-07-21 17:54] LABS: Albumin Globulin Ratio 1.4 (0.9-2); Alkaline Phosphatase 45 U/L (45-117); Bilirubin,Total 0.4 mg/dl (0.2-1); Creatine Kinase 92 U/L (26-192); Globulin 2.8 gm/dl (2.5-4.0); Phosphorus 3.5 mg/dl (2.5-4.9); Thyroid Stimulating Hormone 0.919 uIu/ml (0.300-4.500); Total Protein 6.6 gm/dl (6.4-8.2); Troponin I < 0.015 ng/ml (0-0.045)
--- NOTE | 2021-07-21 18:05 | XRay Report ---
XR chest 1V portable HISTORY: Atypical Chest Pain COMPARISON: Chest 03/08/2021. FINDINGS: The lungs are clear. Cardiac silhouette is normal in size. No pleural effusions. No pneumot horax. IMPRESSION: No acute process. ACT 112: Negative or not required by law. Electronically signed by: Abdi Buck M.D. 07/21/2021 6:04 PM
[2021-07-21] MEDS ORDERED: NITROGLYCERIN SL 0.4 MG/TAB TAB SL STA (19:46)
--- NOTE | 2021-07-21 22:50 | Electrocardiogram Report ---
Test Reason : Blood Pressure : / mmHG Vent. Rate : 063 BPM Atrial Rate : 063 BPM P-R Int : 188 ms QRS Dur : 094 ms QT Int : 396 ms P-R-T Axes : 006 -47 032 degrees QTc Int : 405 ms Normal sinus rhythm Left anterior fascicular block Possible Septal infarct , age undetermined Abnormal ECG When compared with ECG of 09-MAR-2021 05:51, Septal infarct is now Present Confirmed by Roland Fierro ([id number]) on 07/21/2021 10:50:22 PM Referred By: Confirmed By:Roland Fierro
[2021-07-21] MEDS ORDERED: NITROGLYCERIN SL 0.4 MG/TAB TAB SL PRN (23:38)
[2021-07-21] MEDS ORDERED: ACETAMINOPHEN 325 MG TAB PO PRN (23:38)
[2021-07-21] MEDS ORDERED: ONDANSETRON INJ 2 MG/ML 2 ML VIAL IV PRN (23:38)
--- NOTE | 2021-07-21 23:46 | History and Physical Report ---
DATE OF ADMISSION: 07/21/2021. CHIEF COMPLAINT: Chest pain. HISTORY OF PRESENT ILLNESS: This is a 65-year-old female with past medical history significant for osteoporosis, seasonal allergies, IBD, paroxysmal atrial fibrillation, history of cutaneous amyloidosis , hx of second-degree AV block Mobitz type 1, left anterior fascicular block, chronic hypotension with AFib, was diagnosed on 03/08/2021 anticoagulated on Eliquis. The patient says in first week of April, she also had a nuclear stress test which was okay. She has a 14-day Zio monitor which showed sinus rhythm with multiple episodes of SVT, thought to be short burst of atrial fibrillation. No sustained episodes. . Echo showed EF of 60%-65% with mildly enlarged left atrium, mitral valve prolapse mild, aortic root is borderline enlarged at 3.8 cm, ascending aorta mildly enlarged at 4.1 cm. The patient states that she had a Pfizer booster shot today morning after she developed some chest discomfort or pressure like feeling which was not getting better. When she gets pressure-like feeling, she also felt some nauseous and shortness of breath and some cough and the pain was more when she was exerting, resting resolved it. Currently in the ER while she is resting, the pain is completely gone. No headache, no blurred visions, no earache, no runny nose, no sore throat. No abdominal pain, normal bowel and bladder movements. No swelling in the legs. She is using generous amount of salt and also using stockings for her chronic hypotension. ALLERGIES: CAT DANDER, DOG DANDER, POLLEN EXTRACTS, RED PEPPER. PAST MEDICAL HISTORY: As mentioned above. PAST SURGICAL HISTORY: Carpal tunnel surgery, colonoscopy with biopsy, EGDs, excision of breast lesion, left partial oophorectomy, right endometrial tissue, hysteroscopy with biopsy and polypectomy, proctosigmoidoscopy, laparoscopic biopsy of endometriosis, LASIK surgery, total hip replacement. Ultrasound- guided biopsy of the left breast. MEDICATIONS: The patient is on alendronate 70 mg p.o. weekly, Eliquis 5 mg p.o. b.i.d., calcium carbonate 500 mg p.o. b.i.d., vitamin D3 125 mcg p.o. daily, Flonase 2 sprays intranasal daily, glucosamine chondroitin 1 capsule p.o. daily, metoprolol succinate 12.5 mg p.o. b.i.d., multivitamin 1 tablet p.o. daily, trazodone 25 mg p.o. at bedtime. SOCIAL HISTORY: No smoking. No alcohol use. No drug use. FAMILY HISTORY: Significant for atrial fibrillation, prostate cancer. REVIEW OF SYSTEMS: As per HPI. Rest of review of systems is negative. PHYSICAL EXAMINATION: GENERAL: The patient is of moderate build, not in acute distress. VITAL SIGNS: Temperature 37, pulse 70, respiratory rate 17, blood pressure 123/75, oxygen 94% on room air. HEENT: Pupils equal, round and reactive to light. Oral mucosa moist. NECK: No JVD or neck masses. CARDIOVASCULAR: S1 and S2 heard. Regular rate and rhythm. No murmur, no gallop. RESPIRATORY SYSTEM: Normal AP diameter. No accessory muscle use. No wheezing, no crackles. ABDOMEN: Soft, bowel sounds present, nontender, no distention. CENTRAL NERVOUS SYSTEM: Cranial nerves II-XII grossly intact, nonfocal. EXTREMITIES: No edema, no erythema. LABORATORY DATA: WBC 6.8, hemoglobin 12.5, hematocrit 36.7, platelets 166. PT 9.9, INR 1, APTT 25.6. Sodium 141, potassium 4.1, chloride 109, bicarbonate 29, BUN 15, creatinine 0.6, serum glucose 91, calcium 8.9, phosphorus 2.5, magnesium 2.6, total bilirubin 0.4, direct bilirubin 0.1, AST 19, ALT 22, alkaline phosphatase 45, total creatine kinase 92. Troponin I less than 0.015. TSH is 0.9. SARS-CoV-2 PCR negative. IMAGING DATA: Chest x-ray, no acute process. EKG: Normal sinus rhythm, rate of 63, left anterior fascicular block. ASSESSMENT AND PLAN: This is a 65-year-old female who presents with chest pain. 1. Chest pain, rule out acute coronary syndrome. The patient had nuclear stress test in April of this year, which was unremarkable. Initial workup is negative, we will do serial enzymes, echo and keep her n.p.o. after midnight. Consult Cardiology in a.m. for further recommendation. 2. History of atrial fibrillation. Continue rate control with metoprolol, and placed on Eliquis. 3. Chronic hypotension. We will monitor patient's stockings. 4. Insomnia, continue trazodone. 5. History of Aortic root enlargement. needs Followup. 6. Deep venous thrombosis prophylaxis: On Eliquis. DISPOSITION: Closely monitor in the med tele. PT/OT prior to discharge. Social service to help with discharge planning. Job ID: [id number] CARLOS
--- NOTE | 2021-07-22 08:41 | Cardiology Consultation ---
Date of Consultation July 22, 2021 Assessment & Plan (1) Chest pain, exertional: (2) Palpitations: (3) Shortness of breath on exertion: Worsening chest pressure shortness of breath and palpitations after receiving the Pfizer COVID-19 booster. Patient without symptoms overnight. Recent negative nuclear stress test with stable echo cardiographic finding. Troponin negative with unremarkable EKG and telemetry overnight. No evidence of acute coronary syndrome. Okay to discharge home from a cardiac standpoint- continue to follow as an outpatient. In the meantime we will titrate her beta- adelaide to aid in better heart rate control along with her palpitations. 1. Increase metoprolol succinate to 25 mg twice daily (4) Chronic hypotension: Ongoing hypotension dating back to her teens. Patient is currently asymptomatic and notes that since starting metoprolol tartrate her blood pressures have not changed at home. For now no medication changes. Plan as stated above. (5) Paroxysmal atrial fibrillation: (6) Paroxysmal SVT (supraventricular tachycardia): Newly diagnosed paroxysmal A. fib, diagnosed 03/08/2021. Patient is anticoagulated on Eliquis without any bleeding issues. Recent increase in metoprolol succinate to 25 mg in the morning and 12-1/2 mg in the evening however on telemetry heart rates were averaging between 70s and 90s. Have patient increase metoprolol succinate to 25 mg twice daily as stated above. Continue Eliquis 5 mg twice daily, Ensure that patient gets her morning dose prior to discharge. Supervising Physician Co-Signing Physician Notes Patient was seen and personally examined. Overall feels well this morning. Complaints exacerbated by recent Covid booster. No signs of myocardial injury or infarct heart rate trending higher though missed last evening's dose of metoprolol. Echocardiogram today demonstrates preserved to hyperdynamic LV systolic function no atrial arrhythmias on telemetry Plan as above increase metoprolol succinate dosing slightly to 25 mg twice per day resume usual outpatient medications. Patient may discharge to home with planned outpatient follow History of Present Illness Reason for Consultation: Chest pain and shortness of breath Requesting Physician: [facility] Hospitalist Attending Physician: Maria Dolores Higuera DO History of Present Illness 65 year old female addmited to [facility] due to complaints of chest pain. Patient called into outpatient cardio office yesterday with complaints of exertional chest pain about 6 hours after receiving her Pfizer Covid booster. Patient notes that she was doing routine activities around the home and at the grocery store and she started to develop a chest pressure with shortness of breath nausea she was exerting herself walking or carrying groceries. Symptoms improved with rest. Patient notes that her symptoms were similar to previous however the intensity was much worse which worried her. She also noted fatigue and uneasy feeling is what prompted her to contact the office. Patient was encouraged to present to the emergency room for further work-up. Carries a history of paroxysmal atrial fib and SVT- controlled on metoprolol and anticoagulated on Eliquis. Recently Metoprolol succinate was increased to 25 mg in the morning and 12.5 in the evening as an outpatient due to worsening palpitations. Patient has chronic asymptomatic hypotension. Echo this morning showed LVEF 65-70%. Moderately thickened mitral valve leaflets, With mild MR and TR. stable compared to outpatient echo and April/2021. Nuclear stress in April 2021 showed no evidence of inducible ischemia Lab work unremarkable including a negative troponin. Telemetry: Sinus rhythm, 70 to 90 bpm Upon entrance into the room patient was resting comfortably in bed in no acute distress. Notes that since being admitted she has had no further episodes of chest pressure or shortness of breath, however, she notes that she has been pretty sedentary since coming into the hospital. Denies any palpitations, dizziness or syncopal episodes. No orthopnea or unusual lower extremity edema. She has been compliant with all medications and offers no side effects. Cardiac problems 1. Paroxysmal atrial tach 2. Second-degree AV block, Mobitz type 1 3. Left anterior fascicular block 4. Chronic hypotension 5. Paroxysmal atrial fibrillation, diagnosed 03/08/2021, [id number] score of 1 (female), anticoagulated on Eliquis Allergies Allergy/AdvReac Type Severity Reaction Status Date / Time cat dander Allergy Intermediate RHINITIS Verified 07/21/21 19:02 dog dander Allergy Intermediate RHINITIS Verified 07/21/21 19:02 pollen extracts Allergy Intermediate SNEEZING, Verified 07/21/21 19:02 RHINITIS No Known Drug Allergies Allergy Unknown NONE Unverified 07/21/21 19:02 Red Pepper AdvReac Intermediate HEadache Uncoded 07/21/21 19:02 Home Medications Medication Instructions Recorded Confirmed Type alendronate 70 mg tablet 70 mg PO WK 03/08/21 07/22/21 History calcium carbonate 500 mg calcium 500 mg PO BID 03/08/21 07/22/21 History (1,250 mg) tablet (Calcium 500) cholecalciferol (vitamin D3) 125 125 mcg PO DAILY 03/08/21 07/22/21 History mcg (5,000 unit) tablet (Vitamin D3) fluticasone propionate 50 2 spray INTRANASAL DAILY 03/08/21 07/22/21 History mcg/actuation nasal spray,suspension (Flonase Allergy Relief) glucosamine sulf dipot 1 cap PO DAILY 03/08/21 07/22/21 History chlr,msm,chond 550 mg-C 30 mg-isauro 1 mg capsule (Glucosamine Chondroitin) multivitamin 1 tab PO DAILY 03/08/21 07/22/21 History trazodone 50 mg tablet 25 mg PO HS 03/08/21 07/22/21 History apixaban 5 mg tablet (Eliquis) 5 mg PO BID #60 tab 03/09/21 07/22/21 Rx metoprolol succinate 25 mg See Rx Instructions .ROUTE .COMPLEX 07/21/21 07/22/21 History tablet,extended release 24 hr Patient History Medical History Aortic root enlargement Carpal tunnel syndrome DJD (degenerative joint disease) of hip (03/05/14) Endometriosis Insomnia MVP (mitral valve prolapse) Osteoporosis Paroxysmal SVT (supraventricular tachycardia) PAT (paroxysmal atrial tachycardia) Surgical History Hx of LASIK S/P bunionectomy S/P hip replacement Family History Other Atrial fibrillation Prostate cancer Social History Smoking Status: Never smoker Second Hand Exposure: No; Do You Dip or Chew Tobacco: No; Hx Alcohol Use: No Hx Substance Use: No Preferred Language: Micronesian Communication Ability: Effective Wood 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 A+Ox3. HEENT: Normocephalic. Atraumatic. PERRL. EOMI. Conjunctiva and sclera clear. NECK: No carotid bruits. No JVD. Carotid upstrokes are brisk. Heart: RRR. S1 and S2 noted without murmur, rubs, gallops. PMI non displaced. Lungs: Clear to auscultation. No wheezes, rhonchi, rales. Abdomen: Normal bowel sounds. Soft. Nontender. No masses or organomegaly. No abdominal bruits. Extremities: No edema. No clubbing or cyanosis. Pulses: radial=2/4, posterior tibial=2/4, dorsalis pedis = 2/4. NEURO: No focal deficits. PSYCH: Normal. Results & Data ([facility]) Vital Signs (Past 12 Hours) Vital Signs Temp Pulse Pulse Resp BP BP Pulse Ox 07/22/21 04:00 37 C 74 15 112/75 95 07/22/21 00:04 36.7 C 66 18 135/79 100 07/21/21 23:38 07/21/21 23:35 36.7 C 66 18 135/79 100 07/21/21 23:20 36.8 C 72 16 108/64 99 Pulse Ox 07/22/21 04:00 07/22/21 00:04 07/21/21 23:38 100 07/21/21 23:35 07/21/21 23:20 Laboratory Results 07/22/21 07/22/21 07/22/21 Range/Units 09:09 04:51 04:51 WBC (4.8-10.8) K/uL RBC (4.2-5.4) M/uL Hgb (12.0-16.0) g/dL Hct (37-47) % MCV (80-100) fL MCH (25-34) pg MCHC (32-36) g/dL RDW Std Deviation (36.4-46.3) fL RDW Coeff of Anuja (11.5-14.5) % Plt Count (130-400) K/uL MPV (7.4-10.4) fL Immature Gran % (Auto) % Neut % (Auto) % Lymph % (Auto) % Dickenson % (Auto) % Eos % (Auto) % Baso % (Auto) % Neut # (Auto) (1.4-6.5) K/uL Lymph # (Auto) (1.2-3.4) K/uL Dickenson # (Auto) (0.11-0.59) K/uL Eos # (Auto) (0-0.5) K/uL Baso # (Auto) (0-0.2) K/uL Immature Gran # (Auto) (0.00-0.02) K/uL PT (9.0-12.0) Seconds INR (0.9-1.1) APTT (21.0-31.0) Seconds PTT Ratio Sodium (136-145) mmol/L Potassium (3.5-5.1) mmol/L Chloride (98-107) mmol/L Carbon Dioxide (21-32) mmol/L Anion Gap (3-11) BUN (7-18) mg/dl Creatinine (0.6-1.2) mg/dl Est Cr Clr Drug Dosing ml/min Est GFR ( Amer) ml/min Est GFR (Non-Af Amer) ml/min BUN/Creatinine Ratio (10-20) Glucose (70-99) mg/dl Calcium (8.5-10.1) mg/dl Phosphorus (2.5-4.9) mg/dl Magnesium (1.8-2.4) mg/dl Total Bilirubin (0.2-1) mg/dl Direct Bilirubin (0-0.2) mg/dl AST (15-37) U/L ALT (12-78) U/L Alkaline Phosphatase (45-117) U/L Total Creatine Kinase (26-192) U/L Troponin I Pending < 0.015 (0-0.045) ng/ml Total Protein (6.4-8.2) gm/dl Albumin (3.4-5.0) gm/dl Globulin (2.5-4.0) gm/dl Albumin/Globulin Ratio (0.9-2) TSH (0.300-4.500) uIu/ml Nasal Screen MRSA (PCR) (Negative) COVID-19 Eval Order SARS-CoV-2 (PCR) (Negative) Hepatitis C Ab Screen Neg (Neg) 07/22/21 07/21/21 07/21/21 Range/Units 00:00 18:18 18:18 WBC (4.8-10.8) K/uL RBC (4.2-5.4) M/uL Hgb (12.0-16.0) g/dL Hct (37-47) % MCV (80-100) fL MCH (25-34) pg MCHC (32-36) g/dL RDW Std Deviation (36.4-46.3) fL RDW Coeff of Anuja (11.5-14.5) % Plt Count (130-400) K/uL MPV (7.4-10.4) fL Immature Gran % (Auto) % Neut % (Auto) % Lymph % (Auto) % Dickenson % (Auto) % Eos % (Auto) % Baso % (Auto) % Neut # (Auto) (1.4-6.5) K/uL Lymph # (Auto) (1.2-3.4) K/uL Dickenson # (Auto) (0.11-0.59) K/uL Eos # (Auto) (0-0.5) K/uL Baso # (Auto) (0-0.2) K/uL Immature Gran # (Auto) (0.00-0.02) K/uL PT (9.0-12.0) Seconds INR (0.9-1.1) APTT (21.0-31.0) Seconds PTT Ratio Sodium (136-145) mmol/L Potassium (3.5-5.1) mmol/L Chloride (98-107) mmol/L Carbon Dioxide (21-32) mmol/L Anion Gap (3-11) BUN (7-18) mg/dl Creatinine (0.6-1.2) mg/dl Est Cr Clr Drug Dosing ml/min Est GFR ( Amer) ml/min Est GFR (Non-Af Amer) ml/min BUN/Creatinine Ratio (10-20) Glucose (70-99) mg/dl Calcium (8.5-10.1) mg/dl Phosphorus (2.5-4.9) mg/dl Magnesium (1.8-2.4) mg/dl Total Bilirubin (0.2-1) mg/dl Direct Bilirubin (0-0.2) mg/dl AST (15-37) U/L ALT (12-78) U/L Alkaline Phosphatase (45-117) U/L Total Creatine Kinase (26-192) U/L Troponin I (0-0.045) ng/ml Total Protein (6.4-8.2) gm/dl Albumin (3.4-5.0) gm/dl Globulin (2.5-4.0) gm/dl Albumin/Globulin Ratio (0.9-2) TSH (0.300-4.500) uIu/ml Nasal Screen MRSA (PCR) Negative (Negative) COVID-19 Eval Order Covid19 at [facility] SARS-CoV-2 (PCR) NEGATIVE (Negative) Hepatitis C Ab Screen (Neg) 07/21/21 07/21/21 07/21/21 Range/Units 17:03 17:03 17:03 WBC 6.80 (4.8-10.8) K/uL RBC 4.12 L (4.2-5.4) M/uL Hgb 12.5 (12.0-16.0) g/dL Hct 36.7 L (37-47) % MCV 89.1 (80-100) fL MCH 30.3 (25-34) pg MCHC 34.1 (32-36) g/dL RDW Std Deviation 42.8 (36.4-46.3) fL RDW Coeff of Anuja 13.1 (11.5-14.5) % Plt Count 166 (130-400) K/uL MPV 9.8 (7.4-10.4) fL Immature Gran % (Auto) 0.1 % Neut % (Auto) 62.7 % Lymph % (Auto) 31.5 % Dickenson % (Auto) 4.7 % Eos % (Auto) 0.9 % Baso % (Auto) 0.1 % Neut # (Auto) 4.26 (1.4-6.5) K/uL Lymph # (Auto) 2.14 (1.2-3.4) K/uL Dickenson # (Auto) 0.32 (0.11-0.59) K/uL Eos # (Auto) 0.06 (0-0.5) K/uL Baso # (Auto) 0.01 (0-0.2) K/uL Immature Gran # (Auto) 0.01 (0.00-0.02) K/uL PT 9.9 (9.0-12.0) Seconds INR 1.0 (0.9-1.1) APTT 25.6 (21.0-31.0) Seconds PTT Ratio 1.0 Sodium 141 (136-145) mmol/L Potassium 4.1 (3.5-5.1) mmol/L Chloride 109 H (98-107) mmol/L Carbon Dioxide 29 (21-32) mmol/L Anion Gap 3.0 (3-11) BUN 15 (7-18) mg/dl Creatinine 0.61 (0.6-1.2) mg/dl Est Cr Clr Drug Dosing 104.3 ml/min Est GFR ( Amer) 111.8 ml/min Est GFR (Non-Af Amer) 96.5 ml/min BUN/Creatinine Ratio 24.5 H (10-20) Glucose 91 (70-99) mg/dl Calcium 8.9 (8.5-10.1) mg/dl Phosphorus 3.5 (2.5-4.9) mg/dl Magnesium 2.6 H (1.8-2.4) mg/dl Total Bilirubin 0.4 (0.2-1) mg/dl Direct Bilirubin 0.1 (0-0.2) mg/dl AST 19 (15-37) U/L ALT 22 (12-78) U/L Alkaline Phosphatase 45 (45-117) U/L Total Creatine Kinase 92 (26-192) U/L Troponin I < 0.015 (0-0.045) ng/ml Total Protein 6.6 (6.4-8.2) gm/dl Albumin 3.8 (3.4-5.0) gm/dl Globulin 2.8 (2.5-4.0) gm/dl Albumin/Globulin Ratio 1.4 (0.9-2) TSH 0.919 (0.300-4.500) uIu/ml Nasal Screen MRSA (PCR) (Negative) COVID-19 Eval Order SARS-CoV-2 (PCR) (Negative) Hepatitis C Ab Screen (Neg) Diagnostic Findings Echo 07/2021 LV normal size Moderate concentric LVH Focal thickening of the basal septum with no evidence of left ventricular outflow tract obstruction Normal wall motion EF 65 to 70% Grade 1 diastolic dysfunction Mitral valve leaflets moderately thickened Mild MR Trace TR. No evidence of pulmonary hypertension Nuclear stress 04/2021 Lexiscan nuclear cardiac stress test negative for ischemia. Gated SPECT images reveals normal myocardial thickening and wall motion. The LV ejection fraction is calculated at >70%. Echo 04/2021 The examination is adequate to evaluate the referral indication. The qualitative LV ejection fraction is 60-64% (normal). The left atrium is mildly enlarged (35-41 ml/m^2). The left ventricular diastolic function is mildly abnormal (grade I). There is mild posterior mitral leaflet prolapse. There is borderline anterior mitral leaflet prolapse. Mild mitral regurgitation is present. Mild tricuspid regurgitation is present. The aortic root is borderline enlarged, 3.8 cm. The ascending aorta is mildly enlarged, 4.1 cm. Compared to prior study of 11/04/2020, there is no significant change.
[2021-07-22] MEDS ORDERED: NON-FORMULARY MEDICATION (Glucos Sul 2kcl-Msm-Chond-C-Mn [Glucosamine Chondroitin] 550-30- PO SCH (09:00)
[2021-07-22] MEDS ORDERED: CHOLECALCIFEROL 1,000 UNITS 25 MCG TAB PO SCH (09:30)
[2021-07-22] MEDS ORDERED: CALCIUM CARBONATE 1250MG TAB PO SCH (09:30)
[2021-07-22] MEDS ORDERED: FLUTICASONE PROPIONATE NA SPR 16 GM BTL NAE SCH (09:30)
[2021-07-22] MEDS ORDERED: MULTIVITAMIN TAB PO SCH (09:30)
[2021-07-22] MEDS ORDERED: METOPROLOL SUCC 25MG EXT REL TAB PO SCH ×3 (09:30→21:00)
[2021-07-22] MEDS ORDERED: APIXABAN 5 MG TABLET PO SCH (09:30)
--- NOTE | 2021-07-22 14:31 | Discharge Summary ---
Date of Service July 22, 2021 Admission HPI Per Admitting Provider This is a 65-year-old female with past medical history significant for osteoporosis, seasonal allergies, IBD, paroxysmal atrial fibrillation, history of cutaneous amyloidosis , hx of second-degree AV block Mobitz type 1, left anterior fascicular block, chronic hypotension with AFib, was diagnosed on 03/08/2021 anticoagulated on Eliquis. The patient says in first week of April, she also had a nuclear stress test which was okay. She has a 14-day Zio monitor which showed sinus rhythm with multiple episodes of SVT, thought to be short burst of atrial fibrillation. No sustained episodes. . Echo showed EF of 60%- 65% with mildly enlarged left atrium, mitral valve prolapse mild, aortic root is borderline enlarged at 3.8 cm, ascending aorta mildly enlarged at 4.1 cm. The patient states that she had a Pfizer booster shot today morning after she developed some chest discomfort or pressure like feeling which was not getting better. When she gets pressure-like feeling, she also felt some nauseous and shortness of breath and some cough and the pain was more when she was exerting, resting resolved it. Currently in the ER while she is resting, the pain is completely gone. No headache, no blurred visions, no earache, no runny nose, no sore throat. No abdominal pain, normal bowel and bladder movements. No swelling in the legs. She is using generous amount of salt and also using stockings for her chronic hypotension. Admission Exam Per Admitting Provider GENERAL: The patient is of moderate build, not in acute distress. VITAL SIGNS: Temperature 37, pulse 70, respiratory rate 17, blood pressure 123/75, oxygen 94% on room air. HEENT: Pupils equal, round and reactive to light. Oral mucosa moist. NECK: No JVD or neck masses. CARDIOVASCULAR: S1 and S2 heard. Regular rate and rhythm. No murmur, no gallop. RESPIRATORY SYSTEM: Normal AP diameter. No accessory muscle use. No wheezing, no crackles. ABDOMEN: Soft, bowel sounds present, nontender, no distention. CENTRAL NERVOUS SYSTEM: Cranial nerves II-XII grossly intact, nonfocal. EXTREMITIES: No edema, no erythema. Principal Diagnosis chest pain Discharge Exam Gen: WD/WN, NAD, lying in bed, comfortable, A&Ox3 HEENT: Normocephalic, atraumatic, conjunctivae moist, sclerae anicteric, mucous membranes moist Lung: Clear to Auscultation bilaterally, no wheezes/rales/rhonchi Heart: Regular rate, regular rhythm, no murmurs, rubs, or gallops Abdomen: Soft, NT, ND +BS x 4 Extremities: no edema Skin: Warm, no rash Discharge Data Allergies Allergy/AdvReac Type Severity Reaction Status Date / Time cat dander Allergy Intermediate RHINITIS Verified 07/21/21 19:02 dog dander Allergy Intermediate RHINITIS Verified 07/21/21 19:02 pollen extracts Allergy Intermediate SNEEZING, Verified 07/21/21 19:02 RHINITIS No Known Drug Allergies Allergy Unknown NONE Unverified 07/21/21 19:02 Red Pepper AdvReac Intermediate HEadache Uncoded 07/21/21 19:02 Consultations 07/21/21 19:46 ED Decision to Admit Stat 07/22/21 08:00 Consult Cardiology Routine Hospital Course (1) Chest pain: (2) Paroxysmal atrial fibrillation: (3) Palpitations: (4) Paroxysmal SVT (supraventricular tachycardia): This is a 65-year-old female with past medical history significant for osteoporosis, seasonal allergies, IBD, paroxysmal atrial fibrillation, history of cutaneous amyloidosis , hx of second-degree AV block Mobitz type 1, left anterior fascicular block, chronic hypotension with AFib, was diagnosed on 03/08/2021 anticoagulated on Eliquis who was admitted for chest pressure that developed after your vaccine booster. Pressure resolved the night of admission and has not recurred. Was seen by cardiology service this morning - no evidence of acute coronary syndrome, troponin negative and EKG unremarkable. Recent negative nuclear stress test with stable echo cardiographic finding. Okay for discharge and continued outpatient cardiology care. Due to tachycardia during admission, metoprolol succinate was increased to 25mg twice daily. Patient asymptomatic and hemodynamically stable at time of discharge. Total Time Total Time Spent Total Time Spent (In Minutes): 35 Discharge Plan Discharge Items Patient Disposition: Home - Self-Care Reason For Visit: CHEST PAIN Discharge Diagnosis: chest pain Activity: Resume your previous activity Non-emergency contact: Primary Care Provider Call non-emergency contact if: you have any medication questions and your pain is not controlled Follow-up/Referrals: Dianna Gastelum MD [Primary Care Provider] - (Date & Time 07/28/2021 11:00 AM Provider Dianna Gastelum MD Department General Internal Medicine [facility] ) Diet: Heart Healthy Add Attending Provider Instructions: Dear Tania, You were admitted for chest pressure that developed after your vaccine booster that has since resolved. You were seen by cardiology this morning - no evidence of acute coronary syndrome, lab work negative and EKG unremarkable. Recent negative nuclear stress test with stable echo cardiographic finding. Plan to discharge home today and continue to follow with cardiology in office setting. MEDICATION CHANGES: Your metoprolol succinate was increased to 25mg twice daily. RECOMMENDATIONS FOR FOLLOW-UP: Please follow up with Dr. Gastelum on 07/28/2021 at 11:00 AM. OTHER INSTRUCTIONS: Seek medical attention if you have: * temperature above 101 * chest pain or trouble breathing * abdominal pain, nausea, vomiting * diarrhea, dark stools or bloody stools * any unanswered questions or concerns Call 911 if symptoms are severe. Please take good care of yourself. Call if you have any questions or problems. You can reach a [facility] hospitalist on duty at [facility] 24 hours a day by calling [phone]. Rachna Castillo PA-C [facility] Hospitalist Pending Studies at Discharge: No Stand-Alone Forms: My [facility], Smoking Cessation Medications and DC Order Prescriptions: Continued multivitamin Tablet 1 tab PO DAILY RF: 0 trazodone 50 mg tablet 25 mg PO HS RF: 0 alendronate 70 mg tablet 70 mg PO WK RF: 0 calcium carbonate [Calcium 500] 500 mg calcium (1,250 mg) Tablet 500 mg PO BID RF: 0 fluticasone propionate [Flonase Allergy Relief] 50 mcg/actuation Sp ray,Suspension 2 spray INTRANASAL DAILY RF: 0 cholecalciferol (vitamin D3) [Vitamin D3] 125 mcg (5,000 unit) Tablet 125 mcg PO DAILY RF: 0 Glucosamine Chondroitin 550-30-1 mg Capsule 1 cap PO DAILY RF: 0 Eliquis 5 mg tablet 5 mg PO BID Qty: 60 RF: 0 Changed metoprolol succinate 25 mg tablet extended release 24 hr 25 mg PO BID Qty: 60 RF: 0 Discharge Orders: Discharge Order (Routine); Ordered 07/22/21 Ordered By: Rachna Isbell/Other Patient Handouts: Heart Disease Women, ED Atrial Fibrillation Admission Data Admit Date/Time: 07/21/21 22:33 Attending Provider: Maria Dolores Higuera Admit Provider: Vikram Meyer Primary Care Provider: Dianna Gastelum Other Providers: Vikram Meyer ; Spencer Velez ; Byron Baldwin ; Arley Valdez ; Dhaval Robledo ; Aftab Jimenez ; Luther Scott ; Marsha Eid ; Phylicia Pope ; Ina Ge ; Walker Torres Other Interventions: Discharge Summary Assessment (RN) Last Done: 07/22/21 16:14 Supervising Physician Co-Signing Physician Notes I have seen and examined the patient and have discussed the case with the provider above. I agree with the assessment and plan as stated. Kalen,
--- NOTE | 2021-07-22 15:53 | Electrocardiogram Report ---
Test Reason : Blood Pressure : / mmHG Vent. Rate : 075 BPM Atrial Rate : 075 BPM P-R Int : 204 ms QRS Dur : 096 ms QT Int : 372 ms P-R-T Axes : 038 -51 048 degrees QTc Int : 415 ms Sinus rhythm with Premature atrial complexes Left anterior fascicular block Anterior infarct (cited on or before 21-JUL-2021) Abnormal ECG When compared with ECG of 21-JUL-2021 15:16, Premature atrial complexes are now Present Questionable change in initial forces of Septal leads Confirmed by Cl Man ([id number]) on 07/22/2021 3:52:56 PM Referred By: REFERRED SELF Confirmed By:Cl Man
[2021-07-22] MEDS ORDERED: traZODone HCL 50 MG TAB PO SCH (21:00)
[2021-07-23] MEDS ORDERED: ALENDRONATE SODIUM 70 MG TAB PO SCH (06:00)
--- NOTE | 2021-08-12 12:12 | Coding Query ---
Please forward to attending, Dr. Higuera. Thanks CHEST PAIN To promote full compliance with coding requirements relating to patient care physician participation is requested in all cases of national coverage specialist uncertainty. Please assist us with the question(s) below: Please list the cause of the chest pain if known ( x ) possible adverse reaction to Covid 19 Booster vaccine ( ) Other ( ) Unable to Determine Thank you Yolette Estrella, [facility]
== END 2021-07-22 16:50 | disposition home or self-care (01) ==
LOC: 1E 15:13 → ED 15:13 → SUATTDRO 22:33 → 1E 23:20